=== PATIENT | female | born 2000 | race Caucasian/White ===

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

== ENCOUNTER 2018-01-16 10:05 | Emergency (ER) | payer BC ==
--- NOTE | 2018-01-16 10:43 | ED ---
Abdominal Pain/Female - HPI Summary HPI Summary: The pt is a 27 y/o female presenting to [facility] c/o LLQ pain for 1 week worsened 4 days ago. The aching pain rated 5/10 in severity is aggravated by walking and alleviated by lying down. She notes N/V/D but denies constipation.Maris thought she had the stomach bug but the pain is persistent. LNMP was 12/11/2017. The pt took a test today morning but it was difficult to interpret. - History of Current Complaint Chief Complaint: EDAbdPain Stated Complaint: LOWER LT ABD PAIN Time Seen by Provider: 01/16/18 10:30 Hx Obtained From: Patient Hx Last Menstrual Period: 12/11/2017 Onset/Duration: Gradual Onset, Lasting Weeks - 1 week, Worse Since - 4 days ago Timing: Constant Severity Initially: Moderate Severity Currently: Moderate Pain Intensity: 5 Pain Scale Used: 0-10 Numeric Location: Discrete At: LLQ Character: Other: - Aching Aggravating Factor(s): Other: - Ambulating Alleviating Factor(s): Position - Lying down Associated Signs and Symptoms: Positive: Nausea, Vomiting, Diarrhea. Negative: Constipation Allergies/Adverse Reactions: Allergies Allergy/AdvReac Type Severity Reaction Status Date / Time No Known Allergies Allergy Verified 01/16/18 10:29 PMH/Surg Hx/FS Hx/Imm Hx Previously Healthy: No Endocrine/Hematology History: Reports: Hx Thyroid Disease - hypothyroid Denies: Hx Anticoagulant Therapy, Hx Diabetes Cardiovascular History: Denies: Hx Congestive Heart Failure, Hx Deep Vein Thrombosis, Hx Hypertension , Hx Myocardial Infarction, Hx Pacemaker/ICD Respiratory History: Denies: Hx Asthma, Hx Chronic Obstructive Pulmonary Disease (COPD), Hx Lung Cancer, Hx Pneumonia, Hx Pulmonary Embolism GI History: Denies: Hx Gall Bladder Disease, Hx Gastrointestinal Bleed, Hx Ulcer, Hx Urosepsis History: Denies: Hx Dialysis, Hx Kidney Stones, Hx Renal Disease Neurological History: Denies: Hx Dementia, Hx Migraine, Hx Seizures, Hx Transient Ischemic Attacks (TIA) Psychiatric History: Reports: Hx Anxiety Denies: Hx Depression, Hx Schizophrenia, Hx Bipolar Disorder - Surgical History Surgery Procedure, Year, and Place: Tonsillectomy Infectious Disease History: No Infectious Disease History: Denies: Hx Clostridium Difficile, Hx Hepatitis, Hx Human Immunodeficiency Virus (HIV), Hx of Known/Suspected MRSA, Hx Shingles, Hx Tuberculosis, Hx Known/ Suspected VRE, Hx Known/Suspected VRSA, History Other Infectious Disease, Traveled Outside the [place] in Last 30 Days - Family History Known Family History: Positive: Diabetes, Other - irritable bowel (mother), gastroschisis (sister) Negative: Cardiac Disease, Hypertension - Social History Occupation: Employed Full-time Lives: Alone Alcohol Use: Rare Substance Use Type: Reports: None Smoking Status (MU): Never Smoked Tobacco Review of Systems Negative: Fever Gastrointestinal: Negative - Constipation Positive: Abdominal Pain - LLQ , Vomiting, Diarrhea, Nausea All Other Systems Reviewed And Are Negative: Yes Physical Exam - Summary Physical Exam Summary: Appearance: The patient is well-nourished in no acute distress and in no acute pain. Skin: The skin is warm and dry and skin color reflects adequate perfusion. HEENT: The head is normocephalic and atraumatic. The pupils are equal and reactive. The conjunctivae are clear and without drainage. Nares are patent and without drainage. Mouth reveals moist mucous membranes and the throat is without erythema and exudate. The external ears are intact. The ear canals are patent and without drainage. The tympanic membranes are intact. Neck: The neck is supple with full range of motion and non-tender. There are no carotid bruits. There is no neck vein distension. Respiratory: Chest is non-tender. Lungs are clear to auscultation and breath sounds are symmetrical and equal. Cardiovascular: Heart is regular rate and rhythm. There is no murmur or rub auscultated. There is no peripheral edema and pulses are symmetrical and equal. Abdomen: The abdomen is soft and tender to palpation in the LLQ and suprapubic regions. There are normal bowel sounds heard in all four quadrants and there is no organomegaly palpated. Musculoskeletal: There is no back tenderness noted. Extremities are non-tender with full range of motion. There is good capillary refill. There is no peripheral edema or calf tenderness elicited. Neurological: Patient is alert and oriented to person, place and time. The patient has symmetrical motor strength in all four extremities. Cranial nerves are grossly intact. Deep tendon reflexes are symmetrical and equal in all four extremities. Psychiatric: The patient has an appropriate affect and does not exhibit any anxiety or depression. Triage Information Reviewed: Yes Vital Signs On Initial Exam: Initial Vitals Temp Pulse Resp BP Pulse Ox 98.4 F 96 20 141/81 98 01/16/18 10:26 01/16/18 10:26 01/16/18 10:26 01/16/18 10:26 01/16/18 10:26 Vital Signs Reviewed: Yes Diagnostics - Vital Signs Vital Signs Temp Pulse Resp BP Pulse Ox 01/16/18 10:26 98.4 F 96 20 141/81 98 - Laboratory Result Diagrams: 01/16/18 11:02 01/16/18 11:02 Lab Statement: Any lab studies that have been ordered have been reviewed, and results considered in the medical decision making process. Re-Evaluation - Re-Evaluation First Eval Re-Evaluation Time: 12:42 Change: Improved - The pt feels better and is ready to go home. Abdominal Pain Fem Course/Dx - Course Course Of Treatment: Ms. Irizarry presented to the emergency department late for her period, having taken an equivocal urine test and complaining of about 4 days of left lower quadrant pain worse today. She denies discharge or change in bowels and bladder habits. Here vital signs are stable and she was nontoxic in appearance. Her test was barely positive here and her labs are otherwise normal. She needs NATIONAL FACILITIES MANAGER follow-up with a repeat hCG in 2 days. She has no bleeding at this time. She is too early for an ultrasound. She likely needs a pelvic exam but prefers to wait for the NATIONAL FACILITIES MANAGER appointment. - Diagnoses Provider Diagnoses: Discharge - Sign-Out/Discharge Documenting (check all that apply): Patient Departure - DC - Discharge Plan Condition: Stable Disposition: HOME Patient Education Materials: (ED) Forms: *Work Release Referrals: Cristina Suggs MD [Primary Care Provider] - Morgan Meza MD [Medical Doctor] - Additional Instructions: Follow up with [facility] in 1-2 days for a repeat test. Return to ED for any new or worsening symptoms - Billing Disposition and Condition Condition: STABLE Disposition: Home - Attestation Statements Document Initiated by Scribe: Yes Documenting Scribe: Trang Mercer Provider For Whom Scribe is Documenting (Include Credential): Dr. Denzel Boston MD Scribe Attestation: Trang Camarena , scribed for Dr. Denzel Boston MD on 01/16/18 at 2129. Scribe Documentation Reviewed: Yes Provider Attestation: The documentation as recorded by the scribe, Trang Mercer accurately reflects the service I personally performed and the decisions made by me, Dr. Denzel Boston MD
[2018-01-16 11:10] LABS: Urine Appearance Cloudy; Urine Blood Negative (Negative); Urine Color Yellow; Urine Ketones Negative (Negative); Urine Protein Negative (Negative); Urine Red Blood Cell Absent (Absent); Urine Specific Gravity 1.025 (1.010-1.030); Urine Urobilinogen Negative (Negative); Urine White Blood Cell Trace(0-5/hpf) (Absent)
[2018-01-16 11:15] LABS: ABS Basophils 0.1 10^3/ul (0-0.2); ABS Eosinophils 0.1 10^3/ul (0-0.6); ABS Lymphocytes 1.4 10^3/ul (1.0-4.8); ABS Monocytes 0.4 10^3/ul (0-0.8); ABS Nucleated RBC 0 10^3/ul; Eosinophil % 1.3 % (0-6); Hematocrit 31 % (35-47); Hemoglobin 9.4 g/dl (12.0-16.0); Lymphocyte % 15.7 % (25-47); Mean Corpuscular HGB Conc 31 g/dl (31-36); Mean Corpuscular Hemoglobin 16 pg (27-31); Mean Corpuscular Volume 53 fL (80-97); Mean Platelet Volume 8.5 um3 (7.4-10.4); Nucleated Red Blood Cells % 0.1; Platelet Count 362 10^3/ul (150-450); Red Blood Count 5.82 10^6/ul (4.00-5.40); Red Cell Distribution Width 22 % (10.5-15)
[2018-01-16 11:27] LABS: EGFR Non-African American 120.5 (>60)
[2018-01-16 13:00] VITALS: BP 132/77
== END 2018-01-16 12:58 | disposition home or self-care (01) ==
LOC: ED 10:05
DX: O26.891 Other specified pregnancy related conditions, first trimester (principal); R10.32 Left lower quadrant pain
CPT/HCPCS: 36415; 80053; 81003; 81015; 83605; 84702; 85025; 86140; 87086; 99282

== ENCOUNTER 2018-04-30 11:30 | Emergency (ER) | payer BC ==
--- NOTE | 2018-04-30 11:54 | ED ---
HPI Chest Pain - HPI Summary HPI Summary: This pt is a 18 y/o female, currently 18 weeks , presenting to [facility] c/o midsternal chest pain. Pt reports that she had just had a flu shot at her PCP's office and was driving back to work when suddenly she developed chest pain. Pt had flu shot on right arm and states she was nervous she would get a reaction to it. She has never had a flu shot in the past. She states associated symptoms of difficulty breathing and had left arm pain. Denies fever, chills, nausea, vomiting, weakness, numbness, tingling, cough. Pt reports she is being tested currently if she has either gestational diabetes or type 2 diabetes and is seeing a specialist for this in [place]. PMHx: anxiety, panic attack. Pt is only taking vitamins. Her OB is [facility]. Denies tobacco, drug, and alcohol use. - History of Current Complaint Chief Complaint: EDChestPainROMI Time Seen by Provider: 04/30/18 11:44 Hx Obtained From: Patient, Family/Tire Care Manager - Mother Hx Last Menstrual Period: 12/11/2017 Onset/Duration: Started Hours Ago, Still Present Timing: Lasting Hours Current Severity: Moderate Pain Intensity: 6 Pain Scale Used: 0-10 Numeric Chest Pain Location: Mid Sternal Chest Pain Radiates: No Aggravating Factor(s): Nothing Alleviating Factor(s): Nothing Associated Signs and Symptoms: Positive: Chest Pain, Anxiety, Shortness of Breath. Negative: Numbness, Tingling, Weakness, Fever, Chills, Nausea, Cough, Vomiting - Allergy/Home Medications Allergies/Adverse Reactions: Allergies Allergy/AdvReac Type Severity Reaction Status Date / Time No Known Allergies Allergy Verified 04/30/18 11:34 Home Medications: Home Medications Vitamin TAB* 1 tab PO DAILY 04/30/18 [History Confirmed 04/30/18] PMH/Surg Hx/FS Hx/Imm Hx Endocrine/Hematology History: Reports: Hx Thyroid Disease - hypothyroid Denies: Hx Anticoagulant Therapy, Hx Diabetes Cardiovascular History: Denies: Hx Congestive Heart Failure, Hx Deep Vein Thrombosis, Hx Hypertension , Hx Myocardial Infarction, Hx Pacemaker/ICD Respiratory History: Denies: Hx Asthma, Hx Chronic Obstructive Pulmonary Disease (COPD), Hx Lung Cancer, Hx Pneumonia, Hx Pulmonary Embolism GI History: Denies: Hx Gall Bladder Disease, Hx Gastrointestinal Bleed, Hx Ulcer, Hx Urosepsis History: Denies: Hx Dialysis, Hx Kidney Stones, Hx Renal Disease Neurological History: Denies: Hx Dementia, Hx Migraine, Hx Seizures, Hx Transient Ischemic Attacks (TIA) Psychiatric History: Reports: Hx Anxiety Denies: Hx Depression, Hx Schizophrenia, Hx Bipolar Disorder - Surgical History Surgery Procedure, Year, and Place: Tonsillectomy Infectious Disease History: No Infectious Disease History: Denies: Hx Clostridium Difficile, Hx Hepatitis, Hx Human Immunodeficiency Virus (HIV), Hx of Known/Suspected MRSA, Hx Shingles, Hx Tuberculosis, Hx Known/ Suspected VRE, Hx Known/Suspected VRSA, History Other Infectious Disease, Traveled Outside the [place] in Last 30 Days - Family History Known Family History: Positive: Diabetes, Other - irritable bowel (mother), gastroschisis (sister) Negative: Cardiac Disease, Hypertension, Blood Disorder - Social History Alcohol Use: Rare Substance Use Type: Reports: None Smoking Status (MU): Never Smoked Tobacco Review of Systems Negative: Fever, Chills Negative: Erythema Negative: Sore Throat Positive: Chest Pain Positive: Shortness Of Breath. Negative: Cough Negative: Vomiting, Nausea Negative: dysuria, hematuria Musculoskeletal: Other - POS: left arm pain Negative: Myalgia, Edema Negative: Rash Neurological: Other - NEG: dizziness All Other Systems Reviewed And Are Negative: Yes Physical Exam - Summary Physical Exam Summary: Constitutional: Well-developed, Well-nourished, Alert. (-) Distressed Skin: Warm, Dry HENT: Normocephalic; Atraumatic Eyes: Conjunctiva normal Neck: Musculoskeletal ROM normal neck. (-) JVD, (-) Stridor, (-) Tracheal deviation Cardio: Rhythm regular, rate normal, Heart sounds normal; Intact distal pulses; The pedal pulses are 2+ and symmetric. Radial pulses are 2+ and symmetric. (-) Murmur Pulmonary/Chest wall: Effort normal. (-) Respiratory distress, (-) Wheezes, (-) Rales Abd: Soft, (-) Tenderness, (-) Distension, (-) Guarding, (-) Rebound Musculoskeletal: (-) Edema Lymph: (-) Cervical adenopathy Neuro: Alert, Oriented x3 Psych: Mood and affect Normal Triage Information Reviewed: Yes Vital Signs On Initial Exam: Initial Vitals Temp Pulse Resp BP Pulse Ox 97.1 F 91 16 123/80 100 04/30/18 11:31 04/30/18 11:31 04/30/18 11:31 04/30/18 11:31 04/30/18 11:31 Vital Signs Reviewed: Yes Diagnostics - Vital Signs Vital Signs Temp Pulse Resp BP Pulse Ox 04/30/18 11:31 97.1 F 91 16 123/80 100 - Laboratory Lab Statement: Any lab studies that have been ordered have been reviewed, and results considered in the medical decision making process. - EKG 11:41 Cardiac Rate: Tachycardia - at 102 bpm EKG Rhythm: Sinus Tachycardia Summary of EKG Findings: No STEMI. 13:33 Cardiac Rate: NL - at 80 bpm EKG Rhythm: Sinus Rhythm Summary of EKG Findings: No STEMI. Re-Evaluation - Re-Evaluation First Eval Re-Evaluation Time: 13:19 Change: Improved Comment: Pt's mother reports pt had significant anxiety at ecmo specialist's office before her flu shot was given. Obstretrician was asking questions about the progression of her and pt became paranoid. Pt does have hx of anxiety and panic attacks. On re-eval pt's chest pain has resolved but still has mild discomfort on left arm. Chest Pain Course/Dx - Course Assessment/Plan: Pt is a 18 y/o female, currently 18 weeks , who presents with midsternal chest pain. Pt reports that she had just had a flu shot at her PCP's office and was driving back to work when suddenly she developed chest pain. Pt had flu shot on right arm and states she was nervous she would get a reaction to it. She has never had a flu shot in the past. She states associated symptoms of difficulty breathing and had left arm pain. Pt's mother reports pt had significant anxiety at ecmo specialist's office before her flu shot was given. Obstretrician was asking questions about the progression of her and pt became paranoid. Pt does have hx of anxiety and panic attacks. On re-eval pt's chest pain has resolved but still has mild discomfort on left arm. I do not suspect acute coronary syndrome as pt does not have risk factors for this. Will do ambulatory oximetry and repeat EKG. Her ambulatory oximetry was normal. I do not suspect acute coronary syndrome or PE. Pt will be discharged home with follow up from her OB in 2-3 days. She is instructed to return to the ED for any worsening or new symptoms. - Diagnoses Provider Diagnoses: Chest pain, unspecified, Anxiety Discharge - Sign-Out/Discharge Documenting (check all that apply): Patient Departure - Discharge home Patient Received Moderate/Deep Sedation with Procedure: No - Discharge Plan Condition: Stable Disposition: HOME Patient Education Materials: Chest Pain (ED), Anxiety (ED) Referrals: [facility] [Provider Group] Cristina Suggs MD [Medical Doctor] - Additional Instructions: Follow up with your OB in 2-3 days. RETURN TO THE EMERGENCY DEPARTMENT FOR CHANGING OR WORSENING SYMPTOMS. - Attestation Statements Document Initiated by Scribe: Yes Documenting Scribe: Digna Sheffield Provider For Whom Scribe is Documenting (Include Credential): Stan Tillman MD Scribe Attestation: Digna Camarena, scribed for Stan Tillman MD on 04/30/18 at 1404. Status of Scribe Document: Ready
[2018-04-30 13:39] VITALS: BP 119/65
== END 2018-04-30 13:59 | disposition home or self-care (01) ==
LOC: ED 11:30
DX: O26.892 Other specified pregnancy related conditions, second trimester (principal); R07.2 Precordial pain; F41.9 Anxiety disorder, unspecified; R06.02 Shortness of breath; M79.602 Pain in left arm; R00.0 Tachycardia, unspecified; Z3A.18 18 weeks gestation of pregnancy
CPT/HCPCS: 93005; 99281; 99282

== ENCOUNTER 2018-05-17 11:08 | Emergency (ER) | payer BC ==
--- NOTE | 2018-05-17 11:55 | UC ---
FLU HPI - HPI Summary HPI Summary: Approx 20wks F w/ hx of chills., FEVER, cough, one time episode of almost vomiting/nausea. - History of Current Complaint Stated Complaint: FLU LIKE SYMPTOMS Time Seen by Provider: 05/17/18 11:55 Hx Obtained From: Patient Hx From Patient Unobtainable Due To: Altered Mental Status Hx Last Menstrual Period: 12/11/2017 - Allergy/Home Medications Allergies/Adverse Reactions: Allergies Allergy/AdvReac Type Severity Reaction Status Date / Time No Known Allergies Allergy Verified 04/30/18 11:34 PMH/Surg Hx/FS Hx/Imm Hx - Additional Past Medical History Additional PMH: Previously Healthy: Yes Other History Of: Negative For: HIV, Hepatitis B, Hepatitis C, Anticoagulant Therapy - Surgical History Surgical History: Yes Surgery Procedure, Year, and Place: Tonsillectomy - Family History Known Family History: Positive: Diabetes, Other - irritable bowel (mother), gastroschisis (sister) Negative: Cardiac Disease, Hypertension, Blood Disorder - Social History Alcohol Use: Rare Substance Use Type: None Smoking Status (MU): Never Smoked Tobacco - Immunization History Vaccination Up to Date: Yes Review of Systems All Other Systems Reviewed And Are Negative: Yes Constitutional: Negative: Fever, Chills, Fatigue ENT: Positive: Sore Throat, Sinus Congestion. Negative: Ear Ache, Nasal Discharge Respiratory: Positive: Cough. Negative: Shortness Of Breath Cardiovascular: Positive: Negative Gastrointestinal: Positive: Vomiting, Nausea. Negative: Diarrhea Neurological: Negative: Headache Physical Exam Triage Information Reviewed: Yes Appearance: Well-Appearing Vital Signs Reviewed: Yes ENT: Positive: Pharynx normal, TMs normal Neck: Positive: Supple, Nontender, No Lymphadenopathy. Negative: Nuchal Rigidity Respiratory Exam: Normal Cardiovascular Exam: Normal Neurological: Positive: Alert Skin: Negative: Rashes Flu Course/Dx - Course Course Of Treatment: F w/ flu like illness; acute. Vitals good. rapid flu neg. supportive tx recommended. - Differential Dx/Diagnosis Differential Diagnosis/HQI/PQRI: Influenza, RSV, Upper Respiratory Infection Provider Diagnosis: Viral syndrome Discharge - Sign-Out/Discharge Documenting (check all that apply): Patient Departure All imaging exams completed and their final reports reviewed: No Studies - Discharge Plan Condition: Good Disposition: HOME Patient Education Materials: Viral Syndrome (ED) Forms: *Work Release Referrals: No Primary Care Phys,NOPCP [Primary Care Provider] - Additional Instructions: if not improving please follow up with your provider - Billing Disposition and Condition Condition: GOOD Disposition: Home - Attestation Statements Provider Attestation: I was available for consult. This patient was seen by the BETTY. The patient was not presented to, seen by, or examined by me. -Braeden
[2018-05-17 12:49] VITALS: BP 132/67
[2018-05-17 12:50] LABS: Influenza A Molecular NEGATIVE (Negative); Influenza B Molecular NEGATIVE (Negative)
== END 2018-05-17 13:25 | disposition home or self-care (01) ==
LOC: UCEAST 11:08
DX: O98.512 Other viral diseases complicating pregnancy, second trimester (principal); B34.9 Viral infection, unspecified; R41.82 Altered mental status, unspecified; R05 Cough; Z3A.20 20 weeks gestation of pregnancy
CPT/HCPCS: 99211; G0463

== ENCOUNTER 2018-05-27 13:24 | Emergency (ER) | payer BC ==
[2018-05-27 15:11] LABS: ABS Basophils 0 10^3/ul (0-0.2); ABS Eosinophils 0.1 10^3/ul (0-0.6); ABS Lymphocytes 1.2 10^3/ul (1.0-4.8); ABS Monocytes 0.5 10^3/ul (0-0.8); ABS Neutrophils 8.8 10^3/ul (1.5-7.7); ABS Nucleated RBC 0 10^3/ul; Eosinophil % 0.6 %; Hematocrit 31 % (35-47); Hemoglobin 9.6 g/dl (12.0-16.0); Lymphocyte % 11.3 %; Mean Corpuscular HGB Conc 31 g/dl (31-36); Mean Corpuscular Hemoglobin 17 pg (27-31); Mean Corpuscular Volume 54 fL (80-97); Mean Platelet Volume 8.6 fL (7.4-10.4); Nucleated Red Blood Cells % 0; Platelet Count 362 10^3/ul (150-450); Red Cell Distribution Width 21 % (10.5-15); White Blood Count 10.6 10^3/ul (3.5-10.8)
[2018-05-27 15:17] LABS: Albumin 3.4 g/dL (3.2-5.2); Albumin/Globulin Ratio 1.1 (1-3); BUN/Creatinine Ratio 12.5 (8-20); Calcium 8.6 mg/dL (8.6-10.3); Potassium 3.6 mmol/L (3.5-5.0); Total Bilirubin 0.3 mg/dL (0.2-1.0); Total Protein 6.4 g/dL (6.4-8.9)
--- NOTE | 2018-05-27 15:33 | ED ---
- HPI Summary HPI Summary: Patient is a 18-year-old female who presents emergency department for vaginal bleeding and pelvic cramping at 22 weeks gestation. This is patient's first . It has been complicated gestational diabetes which she is managing with diet at this point. Patient follows with OB locally. Patient states just prior to arrival her and significant other having intercourse when she noticed a large amount of bright red blood from vagina with abdominal cramping. She states that since bleeding has improved but she still noticing pain to her vaginal region. She otherwise denies past medical history. Recent illness, vomiting, urinary symptoms or other vaginal discharge. Symptoms are moderate in severity. No current modifying factors. - History of Current Complaint Chief Complaint: EDOBProblems Stated Complaint: "22 WEEKS , I STARTED BLEEDING" PER PT Time Seen by Provider: 05/27/18 14:50 Hx Obtained From: Patient Pain Intensity: 2 - Assessment Hx Now: Yes - 21 weeks per pt Hx Hysterectomy: No - Allergies/Home Medications Allergies/Adverse Reactions: Allergies Allergy/AdvReac Type Severity Reaction Status Date / Time No Known Allergies Allergy Verified 05/27/18 13:32 PMH/Surg Hx/FS Hx/Imm Hx Previously Healthy: Yes Endocrine/Hematology History: Reports: Hx Thyroid Disease - hypothyroid Denies: Hx Anticoagulant Therapy, Hx Diabetes Cardiovascular History: Denies: Hx Congestive Heart Failure, Hx Deep Vein Thrombosis, Hx Hypertension , Hx Myocardial Infarction, Hx Pacemaker/ICD Respiratory History: Denies: Hx Asthma, Hx Chronic Obstructive Pulmonary Disease (COPD), Hx Lung Cancer, Hx Pneumonia, Hx Pulmonary Embolism GI History: Denies: Hx Gall Bladder Disease, Hx Gastrointestinal Bleed, Hx Ulcer, Hx Urosepsis History: Denies: Hx Dialysis, Hx Kidney Stones, Hx Renal Disease Neurological History: Denies: Hx Dementia, Hx Migraine, Hx Seizures, Hx Transient Ischemic Attacks (TIA) Psychiatric History: Reports: Hx Anxiety Denies: Hx Depression, Hx Schizophrenia, Hx Bipolar Disorder - Cancer History Cancer Type, Location and Year: denies - Surgical History Surgery Procedure, Year, and Place: Tonsillectomy Infectious Disease History: No Infectious Disease History: Denies: Hx Clostridium Difficile, Hx Hepatitis, Hx Human Immunodeficiency Virus (HIV), Hx of Known/Suspected MRSA, Hx Shingles, Hx Tuberculosis, Hx Known/ Suspected VRE, Hx Known/Suspected VRSA, History Other Infectious Disease, Traveled Outside the in Last 30 Days - Family History Known Family History: Positive: Diabetes, Other - irritable bowel (mother), gastroschisis (sister) Negative: Cardiac Disease, Hypertension, Blood Disorder - Social History Occupation: Employed Full-time Lives: With Family Alcohol Use: Rare Substance Use Type: Reports: None Smoking Status (MU): Never Smoked Tobacco Review of Systems Constitutional: Negative Negative: Fever, Chills ENT: Negative Cardiovascular: Negative Respiratory: Negative Positive: Abdominal Pain. Negative: Vomiting, Diarrhea, Nausea Positive: other - vaginal bleeding . Negative: dysuria Neurological: Negative All Other Systems Reviewed And Are Negative: Yes Physical Exam - Physical Exam Triage Information Reviewed: Yes Vital Signs Reviewed: Yes Appearance: Positive: Well-Appearing - Pt. sitting up in bed in NAD. Skin: Positive: Warm, Dry Head/Face: Positive: Normal Head/Face Inspection Eyes: Positive: Normal, EOMI Neck: Positive: Supple Respiratory/Lung Sounds: Positive: Clear to Auscultation, Breath Sounds Present Cardiovascular: Positive: Normal, RRR Abdomen Description: Positive: Nontender, Soft Pelvic Exam: Other - Exam performed with female Imelda patrick. External genitalia unremarkable. Speculum exam reveals a closed cervix with a small amount of clotted blood in vaginal canal. No active bleeding. Neurological: Positive: Normal, CN Intact II-III Psychiatric: Positive: Affect/Mood Appropriate Diagnostics - Vital Signs Vital Signs Temp Pulse Resp BP Pulse Ox 05/27/18 13:28 98.3 F 110 18 136/79 98 - Laboratory Lab Results: Lab Results 05/27/18 05/27/18 05/27/18 Range/Units 14:40 14:40 14:40 WBC 10.6 (3.5-10.8) 10^3/ul RBC 5.70 H (4.00-5.40) 10^6/ul Hgb 9.6 L (12.0-16.0) g/dl Hct 31 L (35-47) % MCV 54 L (80-97) fL MCH 17 L (27-31) pg MCHC 31 (31-36) g/dl RDW 21 H (10.5-15) % Plt Count 362 (150-450) 10^3/ul MPV 8.6 (7.4-10.4) fL Neut % (Auto) 83.2 % Lymph % (Auto) 11.3 % [place] % (Auto) 4.7 % Eos % (Auto) 0.6 % Baso % (Auto) 0.2 % Absolute Neuts (auto) 8.8 H (1.5-7.7) 10^3/ul Absolute Lymphs (auto) 1.2 (1.0-4.8) 10^3/ul Absolute Monos (auto) 0.5 (0-0.8) 10^3/ul Absolute Eos (auto) 0.1 (0-0.6) 10^3/ul Absolute Basos (auto) 0 (0-0.2) 10^3/ul Absolute Nucleated RBC 0 10^3/ul Nucleated RBC % 0 Sodium 137 (135-145) mmol/L Potassium 3.6 (3.5-5.0) mmol/L Chloride 107 (101-111) mmol/L Carbon Dioxide 24 (22-32) mmol/L Anion Gap 6 (2-11) mmol/L BUN 7 (6-24) mg/dL Creatinine 0.56 (0.51-0.95) mg/dL Est GFR ( Amer) 167.0 (>60) Est GFR (Non-Af Amer) 138.0 (>60) BUN/Creatinine Ratio 12.5 (8-20) Glucose 96 (70-100) mg/dL Calcium 8.6 (8.6-10.3) mg/dL Total Bilirubin 0.30 (0.2-1.0) mg/dL AST 18 (13-39) U/L ALT 27 (7-52) U/L Alkaline Phosphatase 55 (34-104) U/L Total Protein 6.4 (6.4-8.9) g/dL Albumin 3.4 (3.2-5.2) g/dL Globulin 3.0 (2-4) g/dL Albumin/Globulin Ratio 1.1 (1-3) Beta HCG, Quant Pending Blood Type O Positive Antibody Screen Pending Result Diagrams: 05/27/18 14:40 05/27/18 14:40 Lab Statement: Any lab studies that have been ordered have been reviewed, and results considered in the medical decision making process. Course/Dx - Course Course Of Treatment: Pt. presenting for vaginal bleeding in second trimester after intercourse. Very mild abd. discomfort. Labs show chronic anemia. Blood type is O+. U/A negative for infections or protein. U/S per radiology: IMPRESSION: #. Limited obstetrical ultrasound remarkable for a single live intrauterine gestation in. cephalic presentation with estimated gestational age based on this exam of 23 weeks 2. days. Normal cardiac activity. Normal amniotic fluid volume. #. Negative for placenta previa. #. Long and closed cervix. Advised pt. to schedule a close f.u apt. with OB. Pelvic rest until cleared by OB. To return to ER if sxs change or worsen. Pt. understands and agrees with plan. - Differential Diagnosis/HQI/PQRI: Spontaneous , Threatened , Placenta Abruption, Placenta Previa, Vaginal Bleeding - Diagnoses Provider Diagnoses: Threatened miscarriage, Second trimester bleeding Discharge - Sign-Out/Discharge Documenting (check all that apply): Patient Departure Patient Received Moderate/Deep Sedation with Procedure: No - Discharge Plan Condition: Good Disposition: HOME Patient Education Materials: Threatened Miscarriage (ED) Forms: *Work Release Referrals: Morgan Meza MD [Medical Doctor] - Additional Instructions: Call your OB tomorrow for a close follow up appointment Increase fluids and rest Avoid heavy lifting, sex, or anything into vagina until seen by OB Return to ER if symptoms change or worsen - Billing Disposition and Condition Condition: GOOD Disposition: Home
[2018-05-27 16:58] LABS: Urine Appearance Clear; Urine Bacteria Absent (Absent); Urine Bilirubin Negative (Negative); Urine Blood 3+ (Negative); Urine Color Straw; Urine Glucose Negative (Negative); Urine Ketones Negative (Negative); Urine Nitrite Negative (Negative); Urine Protein Negative (Negative); Urine Red Blood Cell 2+(6-10/hpf) (Absent); Urine Specific Gravity 1.005 (1.010-1.030); Urine Squamous Epithelial Cell Present (Absent); Urine Urobilinogen Negative (Negative); Urine White Blood Cell Trace(0-5/hpf) (Absent)
[2018-05-27 17:26] VITALS: BP 130/76
== END 2018-05-27 17:25 | disposition home or self-care (01) ==
LOC: ED 13:24
DX: O20.0 Threatened abortion (principal); O24.410 Gestational diabetes mellitus in pregnancy, diet controlled; Z3A.22 22 weeks gestation of pregnancy
CPT/HCPCS: 36415; 76815; 80053; 81003; 81015; 84702; 85025; 86850; 86900; 86901; 87086; 99282

== ENCOUNTER 2018-06-25 08:36 | Emergency (ER) | payer BC ==
[2018-06-25] MEDS ORDERED: NS 0.9% 1000 ML** 1,000 ML IV ONE (09:02)
--- NOTE | 2018-06-25 09:03 | ED ---
Syncope/Near Syncope - HPI Summary HPI Summary: Pt. is a 18 y.o female who presents to the ER after a near syncopal episode. Pt. is currently 26 weeks . Pt. states she was sitting at work just prior to arrival when she started feeling dizzy, lightheaded, and her heart racing. Episode quickly resolved. Pt. denies associated SOB or CP. Pt. states since being in the ER her symptoms have almost completely resolved and she is feeling better. Pt. also notes that she has felt decreased activity since Monday. Pt. denies abd. pain, vomiting, urinary sxs, vaginal bleeding or discharge. Past hx of thalassemia. Pt. has an apt. with her OB today at 1400. Sxs are moderate in severity. NO current modifying factors. - History Of Current Complaint Chief Complaint: EDOBProblems Time Seen by Provider: 06/25/18 08:57 Hx Obtained From: Patient - Allergies/Home Medications Allergies/Adverse Reactions: Allergies Allergy/AdvReac Type Severity Reaction Status Date / Time No Known Allergies Allergy Verified 06/25/18 08:45 PMH/Surg Hx/FS Hx/Imm Hx Previously Healthy: Yes Endocrine/Hematology History: Reports: Hx Thyroid Disease - hypothyroid Denies: Hx Anticoagulant Therapy, Hx Diabetes Cardiovascular History: Denies: Hx Congestive Heart Failure, Hx Deep Vein Thrombosis, Hx Hypertension , Hx Myocardial Infarction, Hx Pacemaker/ICD Respiratory History: Denies: Hx Asthma, Hx Chronic Obstructive Pulmonary Disease (COPD), Hx Lung Cancer, Hx Pneumonia, Hx Pulmonary Embolism GI History: Denies: Hx Gall Bladder Disease, Hx Gastrointestinal Bleed, Hx Ulcer, Hx Urosepsis History: Denies: Hx Dialysis, Hx Kidney Stones, Hx Renal Disease Neurological History: Denies: Hx Dementia, Hx Migraine, Hx Seizures, Hx Transient Ischemic Attacks (TIA) Psychiatric History: Reports: Hx Anxiety Denies: Hx Depression, Hx Schizophrenia, Hx Bipolar Disorder - Cancer History Cancer Type, Location and Year: denies - Surgical History Surgery Procedure, Year, and Place: Tonsillectomy Infectious Disease History: No Infectious Disease History: Denies: Hx Clostridium Difficile, Hx Hepatitis, Hx Human Immunodeficiency Virus (HIV), Hx of Known/Suspected MRSA, Hx Shingles, Hx Tuberculosis, Hx Known/ Suspected VRE, Hx Known/Suspected VRSA, History Other Infectious Disease, Traveled Outside the [place] in Last 30 Days - Family History Known Family History: Positive: Diabetes, Other - irritable bowel (mother), gastroschisis (sister) Negative: Cardiac Disease, Hypertension, Blood Disorder - Social History Occupation: Employed Full-time Lives: With Family Alcohol Use: Rare Substance Use Type: Reports: None Smoking Status (MU): Never Smoked Tobacco Review of Systems Constitutional: Negative Negative: Fever, Chills Cardiovascular: Negative Positive: Palpitations. Negative: Chest Pain Respiratory: Negative Negative: Shortness Of Breath, Cough Gastrointestinal: Negative Negative: Abdominal Pain, Vomiting, Diarrhea, Nausea Genitourinary: Negative Negative: dysuria Musculoskeletal: Negative Skin: Negative Neurological: Negative All Other Systems Reviewed And Are Negative: Yes Physical Exam Triage Information Reviewed: Yes Vital Signs On Initial Exam: Initial Vitals Temp Pulse Resp BP Pulse Ox 97.0 F 98 14 125/82 98 06/25/18 08:39 06/25/18 08:39 06/25/18 08:39 06/25/18 08:39 06/25/18 08:39 Vital Signs Reviewed: Yes Appearance: Positive: Well-Appearing - Pt. sitting up in bed in NAD. Mother present. Skin: Positive: Warm, Dry Head/Face: Positive: Normal Head/Face Inspection Eyes: Positive: Normal, EOMI, MARSHA Neck: Positive: Supple Respiratory/Lung Sounds: Positive: Clear to Auscultation, Breath Sounds Present Cardiovascular: Positive: Normal, RRR Musculoskeletal: Positive: Normal, Strength/ROM Intact Neurological: Positive: Normal, CN Intact II-III Psychiatric: Positive: Affect/Mood Appropriate Diagnostics - Vital Signs Vital Signs Temp Pulse Resp BP Pulse Ox 06/25/18 08:39 97.0 F 98 14 125/82 98 - Laboratory Result Diagrams: 06/25/18 09:19 06/25/18 09:19 Lab Statement: Any lab studies that have been ordered have been reviewed, and results considered in the medical decision making process. Course/Dx Course Of Treatment: Pt. presenting with a near syncopal episode in . She is feeling back to baseline in ER. Afebrile with stable VS. ECG done at 0908 shows a sinus rhythm of 97bpm, normal axis, no st elevation or depression. Pt. given a liter of fluids. Orthostatic VS normal. Labs shows WBC of 10.9, H and H 8.9 and 29. Mag 1.6. Pt. has a hx of anemia. Pt. denies having sxs of anemia other than brief episode today. Pt. was given a dose of mag. Pt. states her apt. with OB today is to discuss anemia and discuss iron supplementation. Fetus was montiored by OB nurse and monitoring was normal. Results discussed with pt. She is comfortable with DC home to . with OB today at 1400 to discuss anemia. To return to eR if sxs change or worsen. Pt. understands and agrees with plan. - Diagnoses Differential Diagnosis/HQI/PQRI: Positive: Hypoglycemia, Hypovolemia, Metabolic Reaction Provider Diagnoses: Near syncope, Anemia Discharge - Sign-Out/Discharge Documenting (check all that apply): Patient Departure Patient Received Moderate/Deep Sedation with Procedure: No - Discharge Plan Condition: Improved Disposition: HOME Patient Education Materials: Near Syncope (ED), Anemia (ED) Referrals: Amy Graham MD [Medical Doctor] - Additional Instructions: Follow up with your OB today at 2pm Increase fluids and rest Return to ER if symptoms change or worsen - Billing Disposition and Condition Condition: IMPROVED Disposition: Home
[2018-06-25 09:33] LABS: Hematocrit 29 % (33-41); Hemoglobin 8.9 g/dL (12.0-16.0); Mean Corpuscular HGB Conc 31 g/dL (31-36); Mean Corpuscular Hemoglobin 16 pg (27-31); Mean Corpuscular Volume 53 fL (80-97); Mean Platelet Volume 8.5 fL (7.4-10.4); Platelet Count 385 10^3/uL (150-450); Red Blood Count 5.41 10^6 /uL (3.70-4.87); Red Cell Distribution Width 20 % (10.5-15); White Blood Count 10.9 10^3/uL (3.5-10.8)
[2018-06-25 09:35] LABS: Urine Appearance Cloudy; Urine Bilirubin Negative (Negative); Urine Blood Negative (Negative); Urine Color Yellow; Urine Glucose Negative (Negative); Urine Ketones Negative (Negative); Urine Nitrite Negative (Negative); Urine Protein Negative (Negative); Urine Urobilinogen Negative (Negative)
[2018-06-25 09:45] LABS: ALT 25 U/L (7-52); AST 16 U/L (13-39); Albumin 3.2 g/dL (3.2-5.2); Albumin/Globulin Ratio 1.1 (1-3); Alkaline Phosphatase 60 U/L (34-104); Anion Gap 9 mmol/L (2-11); BUN/Creatinine Ratio 18.2 (8-20); Blood Urea Nitrogen 10 mg/dL (6-24); CO2 Carbon Dioxide 23 mmol/L (22-32); Calcium 8.9 mg/dL (8.6-10.3); Chloride 106 mmol/L (101-111); EGFR African American 170.5 (>60); EGFR Non-African American 140.9 (>60); Globulin 2.9 g/dL (2-4); Glucose 93 mg/dL (70-100); Magnesium 1.6 mg/dL (1.9-2.7); Potassium 3.8 mmol/L (3.5-5.0); Sodium 138 mmol/L (135-145); Total Protein 6.1 g/dL (6.4-8.9)
[2018-06-25 10:19] LABS: TSH (Thyroid Stimulating Horm) 5.25 mcIU/mL (0.34-5.60)
[2018-06-25 10:36] LABS: ABS Basophils 0.1 10^3/ul (0-0.2); ABS Eosinophils 0.1 10^3/ul (0-0.6); ABS Lymphocytes 1.2 10^3/ul (1.0-4.8); ABS Monocytes 0.6 10^3/ul (0-0.8); ABS Nucleated RBC 0 10^3/ul; Eosinophil % 0.9 %; Lymphocyte % 10.7 %; Microcytosis 2+; Nucleated Red Blood Cells % 0; Polychromasia 1+
[2018-06-25] MEDS ORDERED: Magnesium Oxide TAB* 400 MG PO ONE (10:36)
[2018-06-25 11:36] VITALS: BP 112/78
[2018-06-25 15:37] LABS: Iron 28 ug/dL (50-212)
[2018-06-25 15:56] LABS: Free T4 0.76 ng/dL (0.61-1.12)
[2018-06-26 13:37] LABS: % Iron Saturation 4 % (15-55); Total Iron Binding Capacity 652 mcg/dL (250-450); Transferrin 466 mg/dL (203-362)
== END 2018-06-25 11:40 | disposition home or self-care (01) ==
LOC: ED 08:36
DX: O26.892 Other specified pregnancy related conditions, second trimester (principal); R55 Syncope and collapse; O99.282 Endocrine, nutritional and metabolic diseases complicating pregnancy, second trimester; O99.012 Anemia complicating pregnancy, second trimester; Z3A.26 26 weeks gestation of pregnancy
CPT/HCPCS: 36415; 80053; 81003; 82728; 83540; 83550; 83735; 84439; 84443; 85025; 93005; 96360; 96361; 99282

== ENCOUNTER 2018-07-16 07:47 | Emergency (ER) | payer BC ==
--- NOTE | 2018-07-16 08:47 | ED ---
- HPI Summary HPI Summary: Patient is a 18-year-old female with a history of gestational diabetes who is 29 weeks , presenting to the ED with concern for decreased movement. She states she noticed last night at around 8 PM, she had decreased movement, but still felt some amount of movement. Upon wakening this morning, since the production dispatcher hours, she has not had any movement. She states she experienced this one time before and wanted to again make sure everything was okay. She states she does have some anxiety over the and . Gestational diabetes is well-controlled and she checks her sugars regularly. She states she has not eaten yet today. She states so far this has been a normal with no other concerns. She states she is feeling otherwise well. Denies any abdominal pain, vaginal bleeding, vaginal discharge or urinary symptoms. - History of Current Complaint Chief Complaint: EDOBProblems Stated Complaint: 29 WKS , NOT FEELING ANY MOVEMENT PER PT Time Seen by Provider: 07/16/18 07:58 Hx Obtained From: Patient, Family/Cvor Nurse Chief Complaint: Concern for Demise Onset/Duration: Started Hours Ago Timing: Constant Severity: Mild Current Severity: Mild Pain Intensity: 0 Location of Pain: None Character: None Associated Signs and Symptoms: Positive: Negative - Assessment Hx Now: Yes - 21 weeks per pt Hx Hysterectomy: No - Allergies/Home Medications Allergies/Adverse Reactions: Allergies Allergy/AdvReac Type Severity Reaction Status Date / Time No Known Allergies Allergy Verified 06/25/18 08:45 PMH/Surg Hx/FS Hx/Imm Hx Previously Healthy: Yes Endocrine/Hematology History: Reports: Hx Thyroid Disease - hypothyroid Denies: Hx Anticoagulant Therapy, Hx Diabetes Cardiovascular History: Denies: Hx Congestive Heart Failure, Hx Deep Vein Thrombosis, Hx Hypertension , Hx Myocardial Infarction, Hx Pacemaker/ICD Respiratory History: Denies: Hx Asthma, Hx Chronic Obstructive Pulmonary Disease (COPD), Hx Lung Cancer, Hx Pneumonia, Hx Pulmonary Embolism GI History: Denies: Hx Gall Bladder Disease, Hx Gastrointestinal Bleed, Hx Ulcer, Hx Urosepsis History: Denies: Hx Dialysis, Hx Kidney Stones, Hx Renal Disease Neurological History: Denies: Hx Dementia, Hx Migraine, Hx Seizures, Hx Transient Ischemic Attacks (TIA) Psychiatric History: Reports: Hx Anxiety Denies: Hx Depression, Hx Schizophrenia, Hx Bipolar Disorder - Cancer History Cancer Type, Location and Year: denies - Surgical History Surgery Procedure, Year, and Place: Tonsillectomy - Immunization History Date of Influenza Vaccine: 03/2018 Hx Pertussis Vaccination: No Immunizations Up to Date: Yes Infectious Disease History: No Infectious Disease History: Denies: Hx Clostridium Difficile, Hx Hepatitis, Hx Human Immunodeficiency Virus (HIV), Hx of Known/Suspected MRSA, Hx Shingles, Hx Tuberculosis, Hx Known/ Suspected VRE, Hx Known/Suspected VRSA, History Other Infectious Disease, Traveled Outside the [place] in Last 30 Days - Family History Known Family History: Positive: Diabetes, Other - irritable bowel (mother), gastroschisis (sister) Negative: Cardiac Disease, Hypertension, Blood Disorder - Social History Occupation: Unemployed Lives: With Family Alcohol Use: Rare Hx Substance Use: No Substance Use Type: Reports: None Smoking Status (MU): Never Smoked Tobacco Review of Systems Constitutional: Negative Negative: Fever, Chills, Fatigue, Skin Diaphoresis Negative: Palpitations, Chest Pain Negative: Shortness Of Breath, Cough Genitourinary: Negative Positive: no symptoms reported, see HPI Negative: Arthralgia, Myalgia Negative: Rash, Bruising Neurological: Negative All Other Systems Reviewed And Are Negative: Yes Physical Exam - Physical Exam Triage Information Reviewed: Yes Vital Signs Reviewed: Yes Appearance: Positive: Well-Appearing, Well-Nourished Skin: Positive: Warm, Skin Color Reflects Adequate Perfusion Head/Face: Positive: Normal Head/Face Inspection Eyes: Positive: EOMI, MARSHA, Conjunctiva Clear Neck: Positive: Supple, No Lymphadenopathy Respiratory/Lung Sounds: Positive: Clear to Auscultation, Breath Sounds Present Cardiovascular: Positive: RRR, Pulses are Symmetrical in both Upper and Lower Extremities Musculoskeletal: Positive: Strength/ROM Intact Neurological: Positive: Alert, Oriented to Person Place, Time Psychiatric: Positive: Affect/Mood Appropriate Diagnostics - Vital Signs Vital Signs Temp Pulse Resp BP Pulse Ox 07/16/18 07:48 98.3 F 116 20 142/100 99 - Laboratory Lab Statement: Any lab studies that have been ordered have been reviewed, and results considered in the medical decision making process. Course/Dx - Course Course Of Treatment: On arrival to the ED, heart tones are obtained which show 140-155. Discussed this with patient. She states she feels less concern as there are positive heart tones. At this time, she will follow-up with [facility] and she understands she can return to the ED if she continues to not feel any movement. - Differential Diagnosis/HQI/PQRI: Other: - Concern for embryonic demise, anxiety about - Diagnoses Provider Diagnoses: Decreased movement Discharge - Sign-Out/Discharge Documenting (check all that apply): Patient Departure Patient Received Moderate/Deep Sedation with Procedure: No - Discharge Plan Condition: Stable Disposition: HOME Referrals: No Primary Care Phys,NOPCP [Primary Care Provider] - Additional Instructions: heart tones are good Continue to check your sugars Follow up with OBGYN - sooner if you continue to not have movement - Billing Disposition and Condition Condition: STABLE Disposition: Home
[2018-07-16 08:50] VITALS: BP 118/67
== END 2018-07-16 08:49 | disposition home or self-care (01) ==
LOC: ED 07:47
DX: O36.8130 Decreased fetal movements, third trimester, not applicable or unspecified (principal); Z3A.29 29 weeks gestation of pregnancy; O24.419 Gestational diabetes mellitus in pregnancy, unspecified control
CPT/HCPCS: 99282

== ENCOUNTER 2018-09-02 09:34 | Emergency (ER) | payer BC ==
--- NOTE | 2018-09-02 10:15 | UC ---
Lower Extremity/Ankle HPI - HPI Summary HPI Summary: 18-year-old female comes in with a chief complaint of bilateral itchy feet and rash. Patient is 36 weeks . She's had pedal edema for about a month now. She noticed overnight that the top of her feet have a fine red rash on them and they itch. Earlier today she was not feeling the baby move but she drank some orange juice and now she is feeling the baby move. No headache no vision changes no abdominal pain. The rash is itchy. She hasn't now that she' s had any new contact with anything that may give her a rash. Has not been outside much. - History of Current Complaint Chief Complaint: UCSkin Stated Complaint: ITCHY FEET Time Seen by Provider: 09/02/18 09:55 Hx Last Menstrual Period: nov Pain Intensity: 0 - Allergies/Home Medications Allergies/Adverse Reactions: Allergies Allergy/AdvReac Type Severity Reaction Status Date / Time No Known Allergies Allergy Verified 09/02/18 09:59 PMH/Surg Hx/FS Hx/Imm Hx Previously Healthy: Yes Other History Of: Negative For: HIV, Hepatitis B, Hepatitis C, Anticoagulant Therapy - Surgical History Surgical History: Yes Surgery Procedure, Year, and Place: Tonsillectomy - Family History Known Family History: Positive: Diabetes, Other - irritable bowel (mother), gastroschisis (sister) Negative: Cardiac Disease, Hypertension, Blood Disorder - Social History Alcohol Use: None Substance Use Type: None Smoking Status (MU): Never Smoked Tobacco - Immunization History Most Recent Tetanus Shot: utd Vaccination Up to Date: Yes Review of Systems All Other Systems Reviewed And Are Negative: Yes Constitutional: Positive: Negative Skin: Positive: Other - SEE HPI Eyes: Positive: Negative ENT: Positive: Negative Respiratory: Positive: Negative Cardiovascular: Positive: Negative Gastrointestinal: Positive: Negative Genitourinary: Positive: Negative Motor: Positive: Negative Neurovascular: Positive: Negative Musculoskeletal: Positive: Edema Neurological: Positive: Negative Psychological: Positive: Negative Is Patient Immunocompromised?: No Physical Exam Triage Information Reviewed: Yes Appearance: Well-Appearing, No Pain Distress, Well-Nourished Vital Signs: Initial Vital Signs Temp 97.1 F 09/02/18 09:54 Pulse 104 09/02/18 09:54 Resp 16 09/02/18 09:54 BP 140/83 09/02/18 09:54 Pulse Ox 98 09/02/18 09:54 Vital Signs Reviewed: Yes Eye Exam: Normal Eyes: Positive: Conjunctiva Clear Neck: Positive: Supple Respiratory: Positive: No respiratory distress Abdomen Description: Positive: Other: - GRAVID 36 WEEKS Musculoskeletal: Positive: Edema @ - B/L FEET AND ANKLES Neurological Exam: Normal Neurological: Positive: Alert, Muscle Tone Normal Psychological Exam: Normal Psychological: Positive: Normal Response To Family, Age Appropriate Behavior Skin: Positive: Other - ON THE TOPS OF BOTH FEET FINE PUNCTATE SLIGHTLY RAISED ERYTHEMATOUS RASH. NO CONFLUENCE. NO DRAINAGE. Lower Extremity Course/Dx - Course Course Of Treatment: Initial blood pressure 140/83. Recheck was 136/79. There was 1+ protein in the urine. Patient feels the baby moving has no headache no abdominal pain. She's had edema for about a month. The rash is new overnight. Clinically the rash may very well be a contact dermatitis. Therefore going to treat with topical hydrocortisone as needed. Also elevate the legs. Patient has a follow- up appointment scheduled with [facility] on September 04, 2018. I discussed the case with the [facility] on-call Dr. Mike. She requested blood work and to have the patient follow-up as scheduled. I let the patient know that if she felt worse with a headache abdominal pain or any other concerns she should get in contact with [facility] right away for further evaluation. - Differential Dx/Diagnosis Provider Diagnosis: Rash, Protein in urine, , Elevated blood pressure reading Discharge - Sign-Out/Discharge Documenting (check all that apply): Patient Departure All imaging exams completed and their final reports reviewed: No Studies - Discharge Plan Condition: Stable Disposition: HOME Prescriptions: Hydrocortisone 1 applic TOPICAL TID #28.4 gm Patient Education Materials: Acute Rash (ED), Hypertension During (ED ) Referrals: Frida Mike MD [Medical Doctor] - Additional Instructions: FOLLOW UP WITH OBGYN ON 09/04/18 SCHEDULED. GET RECHECKED SOONER IF YOUR CONDITION WORSENS; HEADACHE, ABDOMINAL PAIN, YOU FEEL ILL OR ANY QUESTIONS OR CONCERNS. - Billing Disposition and Condition Condition: STABLE Disposition: Home
[2018-09-02 10:20] VITALS: BP 136/79
[2018-09-02 14:26] LABS: ABS Basophils 0.1 10^3/ul (0-0.2); ABS Eosinophils 0.1 10^3/ul (0-0.6); ABS Lymphocytes 1.2 10^3/ul (1.0-4.8); ABS Monocytes 0.3 10^3/ul (0-0.8); ABS Neutrophils 7.8 10^3/ul (1.5-7.7); Eosinophil % 0.6 %; Hematocrit 30 % (35-47); Hemoglobin 9.4 g/dL (12.0-16.0); Lymphocyte % 12.9 %; Mean Corpuscular HGB Conc 31 g/dL (31-36); Mean Corpuscular Hemoglobin 16 pg (27-31); Mean Corpuscular Volume 51 fL (80-97); Mean Platelet Volume 8.7 fL (7.4-10.4); Nucleated Red Blood Cells % 0.1; Platelet Count 355 10^3/uL (150-450); Red Blood Count 5.92 10^6 /uL (3.70-4.87); Red Cell Distribution Width 20 % (10-15); White Blood Count 9.5 10^3/uL (3.5-10.8)
[2018-09-02 14:30] LABS: Albumin 3.3 g/dL (3.2-5.2); Calcium 8.7 mg/dL (8.6-10.3); Total Bilirubin 0.4 mg/dL (0.2-1.0)
[2018-09-02 14:36] LABS: Albumin/Globulin Ratio 1.2 (1-3); BUN/Creatinine Ratio 14.1 (8-20); EGFR African American 143.1 (>60); EGFR Non-African American 118.3 (>60); Globulin 2.8 g/dL (2-4); Total Protein 6.1 g/dL (6.4-8.9)
--- NOTE | 2018-09-03 15:58 | UC ---
- Progress Note Progress Note: urine culture no growth no change ljj 09/03/18 Course/Dx - Diagnoses Provider Diagnoses: Rash, Protein in urine, , Elevated blood pressure reading Discharge - Sign-Out/Discharge Documenting (check all that apply): Post-Discharge Follow Up All imaging exams completed and their final reports reviewed: No Studies - Discharge Plan Condition: Stable Disposition: HOME Prescriptions: Hydrocortisone 1 applic TOPICAL TID #28.4 gm Patient Education Materials: Acute Rash (ED), Hypertension During (ED ) Referrals: Frida Mike MD [Medical Doctor] - Additional Instructions: FOLLOW UP WITH OBGYN ON 09/04/18 SCHEDULED. GET RECHECKED SOONER IF YOUR CONDITION WORSENS; HEADACHE, ABDOMINAL PAIN, YOU FEEL ILL OR ANY QUESTIONS OR CONCERNS. - Billing Disposition and Condition Condition: STABLE Disposition: Home
== END 2018-09-02 10:50 | disposition home or self-care (01) ==
LOC: UCEAST 09:34
DX: O26.893 Other specified pregnancy related conditions, third trimester (principal); R21 Rash and other nonspecific skin eruption; O12.13 Gestational proteinuria, third trimester; O16.3 Unspecified maternal hypertension, third trimester; Z3A.36 36 weeks gestation of pregnancy
CPT/HCPCS: 36415; 80053; 81003; 82239; 85025; 87086; 99212; G0463

== ENCOUNTER 2018-09-20 17:57 | Inpatient (IN) | payer BC ==
[2018-09-20] MEDS ORDERED: Buffered Lidocaine 1% SYRIN* 1 ML/SYRINGE INTRADERM ONE (19:31)
[2018-09-20] MEDS ORDERED: Dinoprostone* 10 MG VAG.SUPP VAGINAL ONE (19:31)
[2018-09-20] MEDS ORDERED: Lactated Ringers 1000 ML Bag* 1,000 ML IV ONE (19:31)
--- NOTE | 2018-09-20 19:37 | HP ---
General Information - Reason for Visit induction for gestational diabetes - General Information Maternal Age: 18 Grav: 2 Para: 0 SAB: 1 IEA: 0 Estimated Due Date: 09/28/18 Determined By: Early Ultrasound Maternal Blood Type and Rh: O Positive - Results this Serology/RPR Result: Non-Reactive Rubella Result: Immune HBsAg Result: Negative HIV Result: Negative GBS Culture Result: Negative Past Medical History Delivery History: See Records Pertinent Past Medical History: See Records Pertinent Past Surgical History: See Records Pertinent Family History: See Records - Antepartal Records Antepartal Records: Reviewed, Complicated by: - diabetes/obesity/ hypothyroidism Review of Systems Constitutional: Comfortable CV Complaint: No Respiratory: Shortness of Breath: No Gastrointestinal: No Nausea/Vomiting Genitourinary: No Dysuria, No Bleeding, No Leaking Fluid Musculoskeletal: No Complaint Neurological: No Headache Movement: Normal Exam Allergies/Adverse Reactions: Allergies No Known Allergies Allergy (Verified 09/02/18 09:59) t: 98.5 P : 108 RR :20 BP: 86891 - Measurements Height: 5 ft 6 in Weight: 261 lb Weight in lbs: 261.030996 Body Mass Index (BMI): 42.1 Pre- Weight: 280 lb Weight Gained This : -19 lbs and 0 ozs - Exam Breast: Breast Exam Deferred CVA: No CVA Tenderness Extremities: No Edema HEENT: No Significant Findings Lungs: Clear Bilaterally Rectal: Rectal Exam Deferred Reflexes: DTR 2+ Thyroid: No Thyromegaly - Abdominal Exam Abdomen Exam: Non-Tender - Ultrasound/Biophysical Profile Ultrasound Status: Not Done Targeted Exam Findings Cervical Exam: Closed Effacement: Thick Station: -2 Presenting Part: Vertex Membrane Status: Intact EFM Findings - External Monitor Findings Baseline Heart Rate: 140 External Monitor Findings: Accelerations Present, No Pattern of Variable or Late Decelerations, Variability Moderate Contractions: None Assessment/Plan - Obstetrical Risk Factors Obstetrical Risk Factors: Obesity, Gestational Diabetes - Plan Plan: Cervical Ripening, Admit - Anticipate Vaginal Delivery
[2018-09-20] MEDS ORDERED: Lactated Ringers 1000 ML Bag* 1,000 ML IV SCH (20:00)
[2018-09-20 21:28] LABS: Urine Benzodiazepine Screen None Detected (None Detect); Urine Opiates Screen None Detected (None Detect)
[2018-09-21] MEDS ORDERED: Oxytocin in LR* 20 UNITS/1,000 ML BAG IVPB SCH (11:00)
[2018-09-21 11:43] LABS: ABS Basophils 0.1 10^3/ul (0-0.2); ABS Eosinophils 0.1 10^3/ul (0-0.6); ABS Lymphocytes 1.3 10^3/ul (1.0-4.8); ABS Monocytes 0.6 10^3/ul (0-0.8); ABS Neutrophils 8.1 10^3/ul (1.5-7.7); Eosinophil % 0.6 %; Hematocrit 31 % (35-47); Lymphocyte % 12.8 %; Mean Corpuscular HGB Conc 29 g/dL (31-36); Mean Corpuscular Hemoglobin 15 pg (27-31); Mean Corpuscular Volume 51 fL (80-97); Mean Platelet Volume 8.6 fL (7.4-10.4); Nucleated Red Blood Cells % 0.2; Platelet Count 320 10^3/uL (150-450); Red Blood Count 6.01 10^6 /uL (3.70-4.87); Red Cell Distribution Width 21 % (10-15); White Blood Count 10.1 10^3/uL (3.5-10.8)
[2018-09-21] MEDS ORDERED: Nalbuphine* 10 MG/ML 1 ML VIAL IV PRN (23:35)
[2018-09-21] MEDS ORDERED: Promethazine INJ(RESTRICTED)* 25 MG/ML 1 ML VIAL IV PRN (23:35)
[2018-09-22] MEDS ORDERED: OBEPIDURAL* 250 ML EPIDURAL ONE (00:48)
[2018-09-22] MEDS ORDERED: fentaNYL* 50 MCG/ML 2 ML VIAL (100 MCG VIAL) ONE ×2 (01:07→02:16)
[2018-09-22] MEDS ORDERED: Lidocaine 2% w/ EPI 1:200,000* 20 ML VIAL ONE (01:07)
[2018-09-22] MEDS ORDERED: Sodium Citrate/Citric Acid* 15 ML UDC PO PRN (02:05)
[2018-09-22] MEDS ORDERED: Lactated Ringers 1000 ML Bag* 500 ML IV PRN ×2 (02:05)
[2018-09-22] MEDS ORDERED: Phenylephrine 40 MCG/ML SYRINGE IV PUSH PRN ×2 (02:05)
[2018-09-22] MEDS ORDERED: Lactated Ringers 1000 ML Bag* 1,000 ML IV ONE (02:05)
[2018-09-22] MEDS ORDERED: Famotidine TAB* 20 MG PO PRN (02:05)
[2018-09-22] MEDS ORDERED: Bupivacaine 0.25% SDV PF* 10 ML VIAL INJ ONE (02:15)
[2018-09-22] MEDS ORDERED: Lactated Ringers 1000 ML Bag* 1,000 ML IV SCH ×2 (03:00→05:00)
[2018-09-22] MEDS ORDERED: OBEPIDURAL* 250 ML EPIDURAL SCH (03:00)
[2018-09-22] MEDS ORDERED: Dibucaine 1% 28.35 GM TUBE PR PRN (04:53)
[2018-09-22] MEDS ORDERED: Oxytocin in LR* 20 UNITS/1,000 ML BAG IVPB SCH (05:00)
[2018-09-22] MEDS ORDERED: ceFAZolin 1 GM ADVAN(*) 1 GM in NS 0.9% 50 ML* 50 ML IVPB ONE (05:02)
--- NOTE | 2018-09-22 05:02 | PROCNOTE ---
[facility] OB: Delivery Note - Delivery A Date of : 09/22/18 Time of : 04:14 Sex: Male Weight at : 6 lb 12 oz Score 1 Minute: 7 Score 5 Minutes: 9 Gestational Age in Weeks and Days at Delivery: 39 Weeks and 1 Days Delivery Method: Spontaneous Vaginal Labor: Induced Did Patient attempt ?: N/A, No Previous Amniotic Fluid: Clear Estimated Blood Loss: 350 Anesthesia/Analgesia: CEI for Labor Delivered By: Sascha Howe - Nursery Level of Nursery: Regular/Bedside - Perineum Perineal Injury: Vaginal Laceration Perineal Injury Comment: vaginal, right labial laceration Perineal Repair: By Delivering Practioner - Events Delivery Events of Note: Pitocin During Labor, Pitocin Only After Delivery, Supplemental O2 to Mother, Manual Removal of Placenta Delivery Events of Note Comment: Pt presented for IOL for diabetes found in early , otherwise well-controlled with diet. Induced initially with Cervidil followed by pitocin. Slow progress from 2 to 3cm (11 hrs). Pt received an epidural which was effective for all but one side. She progressed rapidly to 9cm, AROM was clear. She then started pushing. She pushed very well for just over 30 min to deliver the head in a controlled fashion, OA. Shoulders and body followed easily. Nuchal cord reduced after delivery. Cord doubly clamped and cut by father. IV pitocin increased. Placenta started to descend, but then stopped despite fundal massage and traction. Manual extraction required as the upper uterus initially would not release the placenta. Once it was grasped, it was able to be removed in one mass. A second sweep removed one small adherent placenta fragment. Fundus then firm and with minimal bleeding. A deep posterior vaginal lac and right labial lac were injected with 1% lidocaine, then repaired with 3-0 Vicryl Rapide.
[2018-09-22] MEDS: Witch Hazel PAD* JAR TOPICAL PRN (07:37)
[2018-09-22] MEDS: Ibuprofen TAB* 600 MG PO PRN ×3 (07:37→19:47)
[2018-09-22] MEDS ORDERED: Simethicone TAB* 80 MG TAB.CHEW PO SCH (08:30)
[2018-09-22] MEDS: Docusate CAP* 100 MG PO SCH ×3 (13:31→19:47)
[2018-09-22] MEDS: Acetaminophen TAB* 325 MG PO PRN (16:42)
[2018-09-22] MEDS: Ferrous Gluconate TAB* 324 MG TAB PO SCH (19:47)
[2018-09-23 05:53] LABS: ABS Basophils 0.1 10^3/ul (0-0.2); ABS Eosinophils 0.2 10^3/ul (0-0.6); ABS Lymphocytes 2.3 10^3/ul (1.0-4.8); ABS Monocytes 0.5 10^3/ul (0-0.8); ABS Neutrophils 6.2 10^3/ul (1.5-7.7); Eosinophil % 1.7 %; Hematocrit 22 % (35-47); Hemoglobin 6.9 g/dL (12.0-16.0); Lymphocyte % 25.2 %; Mean Corpuscular HGB Conc 31 g/dL (31-36); Mean Corpuscular Hemoglobin 16 pg (27-31); Mean Corpuscular Volume 51 fL (80-97); Mean Platelet Volume 8.4 fL (7.4-10.4); Nucleated Red Blood Cells % 0.2; Platelet Count 236 10^3/uL (150-450); Red Blood Count 4.35 10^6 /uL (3.70-4.87); Red Cell Distribution Width 20 % (10-15); White Blood Count 9.3 10^3/uL (3.5-10.8)
[2018-09-23] MEDS: Ferrous Gluconate TAB* 324 MG TAB PO SCH ×2 (08:41→20:59)
[2018-09-23] MEDS: Witch Hazel PAD* JAR TOPICAL PRN (08:41)
[2018-09-23] MEDS: Docusate CAP* 100 MG PO SCH ×3 (09:00→20:59)
[2018-09-23] MEDS: Ibuprofen TAB* 600 MG PO PRN ×2 (10:55→17:24)
[2018-09-23] MEDS: Acetaminophen TAB* 325 MG PO PRN (20:59)
[2018-09-24] MEDS: Ibuprofen TAB* 600 MG PO PRN (07:37)
[2018-09-24] MEDS: Ferrous Gluconate TAB* 324 MG TAB PO SCH (07:37)
[2018-09-24] MEDS: Docusate CAP* 100 MG PO SCH (07:38)
[2018-09-24 07:58] VITALS: BP 133/73
== END 2018-09-24 11:20 | disposition home or self-care (01) | DRG 560 ==
LOC: MCHOBOUT 17:57 → MCHOB 19:36
PROVIDERS: ADMIT Obstetrics & Gynecology; ATTEND Obstetrics & Gynecology
PROC: 10E0XZZ Delivery of Products of Conception, External Approach (ICD-10-PCS; principal; 2018-09-22)
PROC: 3E033VJ Introduction of Other Hormone into Peripheral Vein, Percutaneous Approach (ICD-10-PCS; 2018-09-22)
PROC: 10907ZC Drainage of Amniotic Fluid, Therapeutic from Products of Conception, Via Natural or Artificial Opening (ICD-10-PCS; 2018-09-22)
PROC: 0KQM0ZZ Repair Perineum Muscle, Open Approach (ICD-10-PCS; 2018-09-22)
DX: O24.429 Gestational diabetes mellitus in childbirth, unspecified control (principal); O71.4 Obstetric high vaginal laceration alone; Z37.0 Single live birth; O99.284 Endocrine, nutritional and metabolic diseases complicating childbirth; E03.9 Hypothyroidism, unspecified; O99.214 Obesity complicating childbirth; O99.344 Other mental disorders complicating childbirth; F41.9 Anxiety disorder, unspecified; O69.81X0 Labor and delivery complicated by cord around neck, without compression, not applicable or unspecified; O90.81 Anemia of the puerperium; D64.9 Anemia, unspecified; Z3A.39 39 weeks gestation of pregnancy
CPT/HCPCS: 36415; 59200; 80307; 85025; 86850; 86900; 86901; A9270-GY; J0690; J2300; J2550; J3010; J3490

== ENCOUNTER 2018-10-19 22:52 | Observation (INO) | payer BC ==
[2018-10-19] MEDS ORDERED: NS 0.9% 1000 ML** 1,000 ML IV ONE (23:13)
--- NOTE | 2018-10-20 00:22 | ED ---
GI/ HPI - HPI Summary HPI Summary: 18 year old female presents with vaginal bleeding for past month. She delivered a baby vaginally on August 23. States that since then she has been having spotting every day. States that today the bleeding and pain increased. She has been passing small clots. states that bleeding is less than a period. Yesterday she became dizzy when she stood up. Has history anemia and takes iron for it but has not had it in the past 3 days. Also has history of thalassemia. She admits to crampy lower abdominal pain. Admits to nausea. No vomiting. No urinary symptoms. No fevers or chills. - History of Current Complaint Chief Complaint: EDVaginalBleeding Time Seen by Provider: 10/19/18 23:07 Stated Complaint: HEAVY VAGINAL BLEEDING AND CRAMPING PER PT Hx Last Menstrual Period: nov Pain Intensity: 4 - Allergy/Home Medications Allergies/Adverse Reactions: Allergies Allergy/AdvReac Type Severity Reaction Status Date / Time No Known Allergies Allergy Verified 10/19/18 23:25 Home Medications: Home Medications NK [No Home Medications Reported] 10/20/18 [History Confirmed 10/20/18] PMH/Surg Hx/FS Hx/Imm Hx Endocrine/Hematology History: Reports: Hx Diabetes - type 2- dx with , Hx Thyroid Disease - hypothyroid Denies: Hx Anticoagulant Therapy Cardiovascular History: Denies: Hx Congestive Heart Failure, Hx Deep Vein Thrombosis, Hx Hypertension , Hx Myocardial Infarction, Hx Pacemaker/ICD Respiratory History: Denies: Hx Asthma, Hx Chronic Obstructive Pulmonary Disease (COPD), Hx Lung Cancer, Hx Pneumonia, Hx Pulmonary Embolism GI History: Denies: Hx Gall Bladder Disease, Hx Gastrointestinal Bleed, Hx Ulcer, Hx Urosepsis History: Denies: Hx Dialysis, Hx Kidney Stones, Hx Renal Disease Neurological History: Denies: Hx Dementia, Hx Migraine, Hx Seizures, Hx Transient Ischemic Attacks (TIA) Psychiatric History: Reports: Hx Anxiety - panic disorder Denies: Hx Depression, Hx Schizophrenia, Hx Bipolar Disorder - Cancer History Cancer Type, Location and Year: denies - Surgical History Surgery Procedure, Year, and Place: Tonsillectomy - Immunization History Date of Influenza Vaccine: 03/2018 Infectious Disease History: No Infectious Disease History: Denies: Hx Clostridium Difficile, Hx Hepatitis, Hx Human Immunodeficiency Virus (HIV), Hx of Known/Suspected MRSA, Hx Shingles, Hx Tuberculosis, Hx Known/ Suspected VRE, Hx Known/Suspected VRSA, History Other Infectious Disease, Traveled Outside the [place] in Last 30 Days - Family History Known Family History: Positive: Diabetes, Other - irritable bowel (mother), gastroschisis (sister) Negative: Cardiac Disease, Hypertension, Blood Disorder - Social History Alcohol Use: None Hx Substance Use: No Substance Use Type: Reports: None Smoking Status (MU): Never Smoked Tobacco Review of Systems Negative: Fever Negative: Chest Pain Negative: Shortness Of Breath Positive: Abdominal Pain, Nausea, Other - vaginal bleeding All Other Systems Reviewed And Are Negative: Yes Physical Exam Triage Information Reviewed: Yes Vital Signs On Initial Exam: Initial Vitals Temp Pulse Resp BP Pulse Ox 97.8 F 92 18 144/85 96 10/19/18 22:53 10/19/18 22:53 10/19/18 22:53 10/19/18 22:53 10/19/18 22:53 Vital Signs Reviewed: Yes Appearance: Positive: Well-Appearing Skin: Positive: Warm, Dry Head/Face: Positive: Normal Head/Face Inspection Eyes: Positive: Normal, Conjunctiva Clear ENT: Positive: Pharynx normal Respiratory/Lung Sounds: Positive: Clear to Auscultation, Breath Sounds Present Cardiovascular: Positive: Normal, RRR Abdomen Description: Positive: Soft, Other: - tenderness in lower abd Bowel Sounds: Positive: Present Musculoskeletal: Positive: Normal Neurological: Positive: Normal Psychiatric: Positive: Normal Diagnostics - Vital Signs Vital Signs Temp Pulse Resp BP Pulse Ox 10/19/18 23:27 82 141/86 100 10/19/18 23:24 83 100 10/19/18 22:53 97.8 F 92 18 144/85 96 - Laboratory Result Diagrams: 10/20/18 07:42 10/20/18 00:29 Lab Statement: Any lab studies that have been ordered have been reviewed, and results considered in the medical decision making process. - Ultrasound No standard instances Ultrasound Interpretation Completed By: Radiologist Summary of Ultrasound Findings: IMPRESSION: 1. Thickened endometrial canal containing hyperechoic material measuring 4.2 x. 3.9 x 2.4 cm consistent with retained products of conception. 2. Otherwise negative pelvic sonogram. To contact [facility] with a general question: Re-Evaluation - Re-Evaluation First Eval Re-Evaluation Time: 01:23 Comment: patient feeling better, no longer dizzy GIGU Course/Dx - Course Course Of Treatment: 18 year old female presents with vaginal bleeding for past month. She delivered a baby vaginally on August 23. States that since then she has been having spotting every day. States that today the bleeding and pain increased. She has been passing small clots. states that bleeding is less than a period. Yesterday she became dizzy when she stood up. Has history anemia and takes iron for it. Also has history of thalassemia. She admits to crampy lower abdominal pain. Admits to nausea. No vomiting. No urinary symptoms. No fevers or chills. on exam tenderness in lower abd. vitals stable. u/s shows retained product. wbc normal. hemoglobin 8.5. vitals not orthostatic. patient feeling better. urine likely contaminant. discussed with ob who will see patient in ED. patient will be signed out pending ob for dispo - Diagnoses Differential Diagnoses - Female: Other - RPOC, sepsis, menses Provider Diagnoses: Retained products of conception, Episode of heavy vaginal bleeding, History of anemia, Thalassemia Discharge - Sign-Out/Discharge Documenting (check all that apply): Sign-Out Patient Signing out patient TO: Denzel Nunn - Discharge Plan Condition: Fair Disposition: ADMITTED TO [facility] - Billing Disposition and Condition Condition: FAIR Disposition: Admitted to [facility]
[2018-10-20 00:45] LABS: ABS Eosinophils 0.2 10^3/ul (0-0.6); ABS Lymphocytes 1.5 10^3/ul (1.0-4.8); ABS Monocytes 0.6 10^3/ul (0-0.8); ABS Neutrophils 7.2 10^3/ul (1.5-7.7); Eosinophil % 2.2 %; Hematocrit 29 % (35-47); Hemoglobin 8.5 g/dL (12.0-16.0); Lymphocyte % 15.6 %; Mean Corpuscular HGB Conc 30 g/dL (31-36); Mean Corpuscular Hemoglobin 16 pg (27-31); Mean Corpuscular Volume 53 fL (80-97); Mean Platelet Volume 8.5 fL (7.4-10.4); Platelet Count 376 10^3/uL (150-450); Red Blood Count 5.43 10^6 /uL (3.70-4.87); Red Cell Distribution Width 22 % (10-15); White Blood Count 9.4 10^3/uL (3.5-10.8)
[2018-10-20 00:47] LABS: Activated Partial Thrombo Time 36.6 seconds (26.0-38.0); INR 1.15 (0.82-1.09)
[2018-10-20 00:56] LABS: Albumin 3.8 g/dL (3.2-5.2); Albumin/Globulin Ratio 1.4 (1-3); BUN/Creatinine Ratio 13.9 (8-20); C Reactive Protein 12.89 mg/L (<8.01); Calcium 9.1 mg/dL (8.6-10.3); EGFR African American 112.3 (>60); EGFR Non-African American 92.8 (>60); Globulin 2.8 g/dL (2-4); Potassium 3.4 mmol/L (3.5-5.0); Total Bilirubin 0.3 mg/dL (0.2-1.0); Total Protein 6.6 g/dL (6.4-8.9)
[2018-10-20 01:02] LABS: HCG Pregnancy 10.05 mIU/mL
[2018-10-20 01:23] LABS: Urine Appearance Cloudy; Urine Bacteria Absent (Absent); Urine Bilirubin Negative (Negative); Urine Blood 3+ (Negative); Urine Glucose Negative (Negative); Urine Ketones Negative (Negative); Urine Nitrite Negative (Negative); Urine Protein 1+(30 mg/dL) (Negative); Urine Red Blood Cell 3+(>10/hpf) (Absent); Urine Squamous Epithelial Cell Present (Absent); Urine Urobilinogen Negative (Negative); Urine White Blood Cell 3+(>20/hpf) (Absent)
[2018-10-20 01:31] LABS: Urine Color Red
--- NOTE | 2018-10-20 02:39 | HP ---
General Information - Reason for Visit CC: 4 weeks with heavy vaginal bleeding HPI: Patient is 18 year old who is approximately 4 weeks with spontaneous vaginal delivery on September 22, 2018. She was induced at 39 weeks due to history of diet controlled gestational diabetes. She had a spontaneous vaginal delivery with a manual removal of her placenta. She stated that she had heavy vaginal flow for the first 2 days following delivery but then the vaginal bleeding slowed to spotting until yesterday when she had very heavy for the past 2 days with some dizziness yesterday. She has some cramps with the vaginal bleeding as well. She is bottle feeding her . - General Information Maternal Age: 18 Grav: 2 Para: 1 SAB: 1 IEA: 0 Estimated Due Date: 09/28/18 Determined By: Early Ultrasound Maternal Blood Type and Rh: O Positive - Results this Serology/RPR Result: Non-Reactive Rubella Result: Immune HBsAg Result: Negative HIV Result: Negative GBS Culture Result: Negative Past Medical History Delivery History: Hx Uncomplicated Vaginal Delivery Delivery History Comment: manual removal of placenta Past Medical History Comment: Past Medical History: Iron deficiency anemia with underlying thalassemia known to Dr. Patric Del Valle Gestational diabetes A1 hypothyroidism, not currently on medication premature at , no current pulmonary issues Family History Comment: Father with diabetes, Paternal grandfather with thalassemia, mother and sister anemia, mother has hypothyroidism Review of Systems CV Complaint: No Respiratory: Shortness of Breath: No Gastrointestinal: No Nausea/Vomiting Genitourinary: Bleeding Musculoskeletal: Abdominal Pain Neurological: No Headache - Comments dizziness yesterday Exam Allergies/Adverse Reactions: Allergies No Known Allergies Allergy (Verified 10/19/18 23:25) Vital Signs 10/19/18 10/19/18 10/19/18 22:53 23:24 23:27 Temperature 97.8 F Pulse Rate 92 83 82 Respiratory 18 Rate Blood Pressure 144/85 141/86 (mmHg) O2 Sat by Pulse 96 100 100 Oximetry 10/19/18 10/19/18 10/20/18 23:50 23:56 00:00 Temperature Pulse Rate 104 80 77 Respiratory Rate Blood Pressure 123/69 (mmHg) O2 Sat by Pulse 98 100 100 Oximetry 10/20/18 10/20/18 10/20/18 00:30 00:31 00:32 Temperature Pulse Rate 80 83 102 Respiratory Rate Blood Pressure 114/63 135/80 128/78 (mmHg) O2 Sat by Pulse Oximetry 10/20/18 10/20/18 10/20/18 00:53 00:54 00:57 Temperature Pulse Rate 94 84 100 Respiratory Rate Blood Pressure 114/63 135/80 128/78 (mmHg) O2 Sat by Pulse 98 100 100 Oximetry 10/20/18 10/20/18 01:05 01:27 Temperature Pulse Rate 80 93 Respiratory Rate Blood Pressure 128/61 (mmHg) O2 Sat by Pulse 100 100 Oximetry Lab Values - Entire Visit: Laboratory Tests 10/20/18 10/20/18 10/20/18 00:29 00:29 00:29 WBC 9.4 RBC 5.43 H Hgb 8.5 L Hct 29 L MCV 53 L MCH 16 L MCHC 30 L RDW 22 H Plt Count 376 MPV 8.5 Neut % (Auto) 75.9 Lymph % (Auto) 15.6 [place] % (Auto) 5.9 Eos % (Auto) 2.2 Baso % (Auto) 0.4 Absolute Neuts (auto) 7.2 Absolute Lymphs (auto) 1.5 Absolute Monos (auto) 0.6 Absolute Eos (auto) 0.2 Absolute Basos (auto) 0.0 Absolute Nucleated RBC 0.0 Nucleated RBC % 0.0 INR (Anticoag Therapy) 1.15 H APTT 36.6 Sodium 139 Potassium 3.4 L Chloride 104 Carbon Dioxide 29 Anion Gap 6 BUN 11 Creatinine 0.79 Est GFR ( Amer) 112.3 Est GFR (Non-Af Amer) 92.8 BUN/Creatinine Ratio 13.9 Glucose 139 H Calcium 9.1 Total Bilirubin 0.30 AST 14 ALT 15 Alkaline Phosphatase 60 C-Reactive Protein 12.89 H Total Protein 6.6 Albumin 3.8 Globulin 2.8 Albumin/Globulin Ratio 1.4 Beta HCG, Quant 10.05 Urine Color Urine Appearance Urine pH Ur Specific [place] Urine Protein Urine Ketones Urine Blood Urine Nitrate Urine Bilirubin Urine Urobilinogen Ur Leukocyte Esterase Urine WBC (Auto) Urine RBC (Auto) Ur Squamous Epith Cells Urine Bacteria Urine Glucose Blood Type Antibody Screen 10/20/18 10/20/18 00:29 01:05 WBC RBC Hgb Hct MCV MCH MCHC RDW Plt Count MPV Neut % (Auto) Lymph % (Auto) [place] % (Auto) Eos % (Auto) Baso % (Auto) Absolute Neuts (auto) Absolute Lymphs (auto) Absolute Monos (auto) Absolute Eos (auto) Absolute Basos (auto) Absolute Nucleated RBC Nucleated RBC % INR (Anticoag Therapy) APTT Sodium Potassium Chloride Carbon Dioxide Anion Gap BUN Creatinine Est GFR ( Amer) Est GFR (Non-Af Amer) BUN/Creatinine Ratio Glucose Calcium Total Bilirubin AST ALT Alkaline Phosphatase C-Reactive Protein Total Protein Albumin Globulin Albumin/Globulin Ratio Beta HCG, Quant Urine Color Red A Urine Appearance Cloudy Urine pH 6.0 Ur Specific [place] 1.010 Urine Protein 1+(30 mg/dl) A Urine Ketones Negative Urine Blood 3+ A Urine Nitrate Negative Urine Bilirubin Negative Urine Urobilinogen Negative Ur Leukocyte Esterase 2+ A Urine WBC (Auto) 3+(>20/hpf) A Urine RBC (Auto) 3+(>10/hpf) A Ur Squamous Epith Cells Present A Urine Bacteria Absent Urine Glucose Negative Blood Type O Positive Antibody Screen Negative - Measurements Height: 1.68 m Weight: 106.594 kg Body Mass Index (BMI): 37.9 Pre- Weight: 127.006 kg - Exam CVA: No CVA Tenderness Extremities: No Edema Rectal: Rectal Exam Deferred Other Exam Findings: Speculum exam, dark red blood in vagina, cervix appears parous and closed, no tissue in os bimanual exam uterus 6 weeks in size, nontender, no adnexal masses noted - Abdominal Exam Abdomen Exam: Non-Tender Abdomen Exam Comment: soft, no masses noted - Ultrasound/Biophysical Profile Ultrasound Status: Radiology Department Full Exam - Patient with ultrasound findings consistent with retained products of conception 4cm in diameter Assessment/Plan - Plan Plan Comment: Assessment; diagnosis of retained products of conception, vaginal bleeding episode, history of anemia with underlying thalassemia. Plan: Admit, add on to OR schedule, NPO, type and cross, IV fluid - Date/Time of Admission Date of Admission: 10/20/18 - retained products of conception, vaginal bleeding
--- NOTE | 2018-10-20 03:01 | ED ---
Progress - Progress Note Progress Note: This patient is a sign-out from LEANN Soto to Denzel Nunn MD at 0230 on 10/20/18 at shift change pending OB disposition. Re-Evaluation - Re-Evaluation First Eval Re-Evaluation Time: 01:23 Comment: patient feeling better, no longer dizzy Course/Dx - Course Course Of Treatment: This patient is a sign-out from LEANN Soto to Denzel Nunn MD at 0230 on 10/20/18 at shift change pending OB disposition. Discussed patient case with ALEXEY Garcia, who diagnosed the pt with retained products of conception, vaginal bleeding, and history of anemia with underlying thalassemia. Dr. Maher accepted the patient for admission and scheduled her for the OR. - Diagnoses Provider Diagnoses: Retained products of conception, Episode of heavy vaginal bleeding, History of anemia, Thalassemia - Provider Notifications Discussed Care Of Patient With: Kymberly Maher Time Discussed With Above Provider: 03:20 Instructed by Provider To: Other - Discussed patient case with ALEXEY Garcia , who diagnosed the pt with retained products of conception, vaginal bleeding, and history of anemia with underlying thalassemia. The patient will be admitted and scheduled for the OR. Discharge - Sign-Out/Discharge Documenting (check all that apply): Patient Departure - Admit Patient Received Moderate/Deep Sedation with Procedure: No - Discharge Plan Condition: Good Disposition: ADMITTED TO [facility] - Billing Disposition and Condition Condition: GOOD Disposition: Admitted to [facility] - Attestation Statements Document Initiated by Errole: Yes Documenting Scribe: Hunter Galvin Provider For Whom Nayely is Documenting (Include Credential): MD Nayely Marrero Attestation: Hunter Camarena, scribed for Denzel Nunn MD on 10/21/18 at 0424. Scribe Documentation Reviewed: Yes Provider Attestation: The documentation as recorded by the Hunter mcleod accurately reflects the service I personally performed and the decisions made by me, Denzel Nunn MD Status of Scribanahi Document: Viewed
[2018-10-20] MEDS ORDERED: Lactated Ringers 1000 ML Bag* 1,000 ML IV SCH ×2 (07:00→16:00)
[2018-10-20 07:54] LABS: Hematocrit 27 % (35-47); Hemoglobin 8.4 g/dL (12.0-16.0); Mean Corpuscular HGB Conc 31 g/dL (31-36); Mean Corpuscular Hemoglobin 16 pg (27-31); Mean Corpuscular Volume 52 fL (80-97); Red Blood Count 5.21 10^6 /uL (3.70-4.87); Red Cell Distribution Width 21 % (10-15); White Blood Count 8.8 10^3/uL (3.5-10.8)
[2018-10-20 08:31] LABS: ABS Basophils 0.1 10^3/ul (0-0.2); ABS Eosinophils 0.2 10^3/ul (0-0.6); ABS Lymphocytes 1.7 10^3/ul (1.0-4.8); ABS Monocytes 0.5 10^3/ul (0-0.8); ABS Neutrophils 6.4 10^3/ul (1.5-7.7); Lymphocyte % 18.7 %; Mean Platelet Volume 8.7 fL (7.4-10.4); Nucleated Red Blood Cells % 0.1; Platelet Count 335 10^3/uL (150-450)
[2018-10-20 08:50] LABS: TSH (Thyroid Stimulating Horm) 6.69 mcIU/mL (0.34-5.60)
[2018-10-20] MEDS ORDERED: Midazolam* 1 MG/ML 5 ML VIAL (5 MG) ONE (15:01)
[2018-10-20] MEDS ORDERED: Propofol* 10 MG/ML 20 ML BTL ONE (15:01)
[2018-10-20] MEDS ORDERED: fentaNYL* 50 MCG/ML 2 ML VIAL (100 MCG VIAL) ONE (15:01)
[2018-10-20] MEDS ORDERED: Lidocaine 2% PF * 5 ML VIAL ONE (15:02)
[2018-10-20] MEDS ORDERED: Buffered Lidocaine 1% SYRIN* 1 ML/SYRINGE INTRADERM ONE (15:16)
[2018-10-20] MEDS ORDERED: DOXYcycline IV* 200 MG in NS 0.9% 250 ML* 250 ML IVPB ONE (16:12)
--- NOTE | 2018-10-20 16:20 | PN ---
Progress Note - Progress Note Date of Service: 10/20/18 Note: Pt is 4 wks s/p complicated by retained placenta requiring manual extraction in the delivery room. At the time, the uterine cavity felt smooth and without additional tissue. Pt reports fairly heavy bleeding for a few days which slowed to spotting for the past few weeks. Yesterday she started having fairly heavy bleeding, so she came to the ER. U/S was notable for an approx 4cm area in the uterus consistent with retained placental tissue. Pt with normal WBC and no left shift. Bleeding has been mostly light until just recently when it has increased again. Pt denies any F/C, N/V. Exam last night showed uterus was small and nontender. Discussed surgery today. Recommend D&C of tissue with ultrasound guidance. Discussed risks of hemorrhage, transfusion, infection, uterine perforation, bowel/bladder injury, and anesthesia complications. All questions answered. Consent signed.
[2018-10-20] MEDS ORDERED: oxyCODONE/Acetamin 5/325 MG* TAB PO PRN (16:51)
[2018-10-20] MEDS ORDERED: Naloxone* 0.4 MG/ML 1 ML VIAL IV PRN (16:51)
[2018-10-20] MEDS ORDERED: fentaNYL* 50 MCG/ML 2 ML VIAL (100 MCG VIAL) IV PRN (16:51)
[2018-10-20] MEDS ORDERED: Acetaminophen TAB* 325 MG PO PRN (16:51)
[2018-10-20] MEDS ORDERED: Ondansetron INJ* 2 MG/ML VIAL IV PRN (16:51)
[2018-10-20] MEDS ORDERED: Ketorolac INJ* 15 MG/ML 1 ML VIAL IV PUSH ONE (18:06)
[2018-10-20] MEDS ORDERED: Ketorolac INJ* 30 MG/ML 1 ML VIAL ONE (18:06)
[2018-10-20 19:45] VITALS: BP 109/67
[2018-10-22 14:07] LABS: Chlamydia trachomatis NAA Negative (Negative); Neisseria gonorrhoeae (GC) NAA Negative (Negative)
--- NOTE | 2018-10-26 18:19 | OP ---
DATE OF OPERATION: 10/20/18 - ROOM #332 DATE OF : 98 SURGEON: Sascha Howe MD IRON MOLDER HELPER: Kymberly Maher MD ANESTHESIOLOGIST: Dr. Davey. ANESTHESIA: Spinal. PRE-OP DIAGNOSES: Four weeks with retained placenta and heavy bleeding. POST-OP DIAGNOSES: Four weeks with retained placenta and heavy bleeding. OPERATIVE PROCEDURE: Suction dilation and curettage with vacuum assist. MATERIALS TO LAB: Intrauterine contents. ESTIMATED BLOOD LOSS: 100 cc. URINE OUTPUT: 100 cc. IV FLUIDS: 500 cc lactated Ringer's. INDICATIONS: This patient is a 18-year-old 2, para 1-0-1-1, who delivered 4 weeks ago by a spontaneous vaginal delivery, which was complicated by retained placenta, which required manual extraction at delivery. At that time, there was no additional palpable tissue within the uterine cavity. The patient was discharged without any issues and within a couple of days , her bleeding had slowed down to minimal spotting. The patient did not have any significant bleeding for the next 3 weeks, but then yesterday began to have fairly heavy bleeding again. On evaluation in the emergency room, ultrasound was notable for an approximately 4-cm segment of echogenic material within the uterine cavity consistent with likely retained placental tissue. The patient was extensively counseled for a suction dilation and curettage and consent was signed. FINDINGS: Approximately 2 x 4 cm piece of tissue which appeared to be necrotic placenta. This was removed completely under the ultrasound guidance. COMPLICATIONS: None. DESCRIPTION OF PROCEDURE: The risks, benefits, and alternatives were described to the patient and informed consent was obtained. The patient was taken to the operating room with IV running where spinal anesthesia was induced and found to be adequate. The patient was prepped and draped in the normal sterile fashion in the high lithotomy position in [facility]. A time-out was performed. The bladder was emptied. A bivalve speculum was placed in the vagina and a single tooth tenaculum was placed on the anterior cervix. The cervix was then gently dilated using Hegar dilators until a size 12 suction curette was able to be inserted to the cervix. Of note, this required minimal dilation. At this time, the suction curette was advanced and suction was activated. When the suction curette was removed, a large piece of tissue was attached to it and was removed without difficulty. On ultrasound, there did not appear to be any additional tissue left. A sharp curettage with a medium banjo curette was performed with minimal additional tissue obtained. At that time, the uterine fundus was firm. There was minimal bleeding. The tenaculum was removed from the cervix and there was good hemostasis. The patient tolerated the procedure well. Sponge, lap, and needle counts were correct x2. [id number]/[facility] #: [id number] [facility]
--- NOTE | 2018-11-07 16:04 | DS ---
DISCHARGE SUMMARY: DATE OF ADMISSION: 10/20/18 DATE OF DISCHARGE: 10/20/18 HOSPITAL COURSE: This patient was a 18-year-old 2, para 1-0-1-1, admitted for observation at 4 weeks when she presented to the emergency room with heavy bleeding for the first time since delivery. The patient's vaginal delivery had been uncomplicated other than for retained placenta requiring manual extraction of the placenta. On ultrasound in the ER, there was an approximately 4 cm density within the uterus which appeared to be likely consistent with a retained fragment of placenta. The patient's bleeding had decreased, so she was put on the OR schedule for that day. She then underwent a suction dilatation and curettage with ultrasound guidance. This was productive of an approximately 2 x 4 cm fragment of tissue consistent with likely retained placenta. The procedure was uncomplicated and the patient had an uncomplicated recovery. She was discharged to home within 2 hours of the procedure. DISCHARGE PHYSICAL EXAMINATION: Vital signs within normal limits. Afebrile. Abdomen: Soft and nontender. DISCHARGE LABORATORY INFORMATION: None. DISCHARGE DIAGNOSES: hemorrhage with retained products of conception , status post suction dilation and curettage with ultrasound guidance. CONDITION: Good. DISPOSITION: Discharged to home. [id number]/[facility] #: [id number] [facility]afael[facility]
== END 2018-10-20 19:30 | disposition home or self-care (01) ==
LOC: ED 22:52 → SSU 10-20 03:58
PROVIDERS: ADMIT Specialist; ATTEND Obstetrics & Gynecology
PROC: 10D17ZZ Extraction of Products of Conception, Retained, Via Natural or Artificial Opening (ICD-10-PCS; principal; 2018-10-20 13:00)
DX: O72.2 Delayed and secondary postpartum hemorrhage (principal); D50.9 Iron deficiency anemia, unspecified; D56.9 Thalassemia, unspecified; O24.439 Gestational diabetes mellitus in the puerperium, unspecified control; E03.9 Hypothyroidism, unspecified; Z79.899 Other long term (current) drug therapy
CPT/HCPCS: 36415; 76856; 80053; 81003; 81015; 83036; 84443; 84702; 85025; 85610; 85730; 86140; 86850; 86900; 86901; 87086; 87480; 87491; 87510; 87591; 87661; 88307; 96361; 96374; 99285; G0378; J1885; J2250; J2704; J3010

== ENCOUNTER 2018-12-25 10:07 | Emergency (ER) | payer BC ==
[2018-12-25 10:44] VITALS: BP 119/70
--- NOTE | 2018-12-25 10:55 | UC ---
Throat Pain/Nasal Anthony HPI - HPI Summary HPI Summary: 18-year-old female who's had a sore throat and fever over the past 3 days since Monday. She states the fever broke yesterday but she has continued with the sore throat. She has a 3-month-old child at home and just wants to be checked for strep. - History of Current Complaint Chief Complaint: UCGeneralIllness Stated Complaint: SORE THROAT HEADACHE Time Seen by Provider: 12/25/18 10:33 Hx Obtained From: Patient Hx Last Menstrual Period: 12/17/18 ?: No Onset/Duration: Gradual Onset Severity: Mild Pain Intensity: 4 Associated Signs & Symptoms: Positive: Fever - Patient states the fever broke yesterday. - Allergies/Home Medications Allergies/Adverse Reactions: Allergies Allergy/AdvReac Type Severity Reaction Status Date / Time shellfish derived Allergy Difficulty Verified 12/25/18 10:38 Breathing Home Medications: Home Medications Ibuprofen TAB* [Motrin TAB* 400 MG] 400 mg PO ONCE 12/25/18 [History Confirmed 12/25/18] PMH/Surg Hx/FS Hx/Imm Hx Previously Healthy: Yes Endocrine History: Diabetes, Hypothyroidism Other History Of: Negative For: HIV, Hepatitis B, Hepatitis C, Anticoagulant Therapy - Surgical History Surgical History: Yes Surgery Procedure, Year, and Place: Tonsillectomy, [facility] - Family History Known Family History: Positive: Diabetes, Other - irritable bowel (mother), gastroschisis (sister) Negative: Cardiac Disease, Hypertension, Blood Disorder - Social History Alcohol Use: None Substance Use Type: None Smoking Status (MU): Never Smoked Tobacco - Immunization History Most Recent Influenza Vaccination: 04/30/18 Most Recent Tetanus Shot: utd Most Recent Pneumonia Vaccination: never Vaccination Up to Date: Yes Review of Systems All Other Systems Reviewed And Are Negative: Yes Constitutional: Positive: Fever - Fever broke yesterday. ENT: Positive: Sore Throat Is Patient Immunocompromised?: No Physical Exam Triage Information Reviewed: Yes Appearance: Well-Appearing, No Pain Distress, Well-Nourished Vital Signs: Initial Vital Signs Temp 98.2 F 12/25/18 10:39 Pulse 87 12/25/18 10:39 Resp 18 12/25/18 10:39 BP 119/70 12/25/18 10:39 Pulse Ox 102 12/25/18 10:39 Vital Signs Reviewed: Yes Eyes: Positive: Conjunctiva Clear ENT: Positive: Hearing grossly normal, TMs normal, Uvula midline, Other - Patient has 2 very small aphthous ulcers on her right tonsil. Neck: Positive: Supple, Nontender, No Lymphadenopathy Respiratory: Positive: Lungs clear, Normal breath sounds, No respiratory distress, No accessory muscle use Cardiovascular: Positive: RRR, No Murmur, Pulses Normal, Brisk Capillary Refill Abdomen Description: Positive: Nontender, No Organomegaly, Soft. Negative: CVA Tenderness (R), CVA Tenderness (L), Hepatomegaly, Splenomegaly Bowel Sounds: Positive: Present Musculoskeletal Exam: Normal Neurological Exam: Normal Psychological Exam: Normal Skin Exam: Normal Throat Pain/Nasal Course/Dx - Course Course Of Treatment: Rapid strep: Negative Patient is comfortable here. I believe at this point time this is a viral illness and she is to follow-up with her primary care provider if no improvement in 3 or 4 days. - Differential Dx/Diagnosis Provider Diagnosis: Pharyngitis Discharge ED - Sign-Out/Discharge Documenting (check all that apply): Patient Departure All imaging exams completed and their final reports reviewed: No Studies - Discharge Plan Condition: Good Disposition: HOME Patient Education Materials: Pharyngitis (ED) Referrals: [facility] [Outside] No Primary Care Phys,NOPCP [Primary Care Provider] - Additional Instructions: Increase fluids, warm saltwater gargles, throat lozenges. May take ibuprofen as directed for pain. Follow-up with your primary care provider if no improvement in 3 or 4 days. - Billing Disposition and Condition Condition: GOOD Disposition: Home
== END 2018-12-25 11:30 | disposition home or self-care (01) ==
LOC: UCEAST 10:07
DX: J02.9 Acute pharyngitis, unspecified (principal); Z91.013 Allergy to seafood
CPT/HCPCS: 87651; 99211; G0463

== ENCOUNTER 2019-05-18 04:21 | Emergency (ER) | payer BC, MEDICAID ==
--- OUTSIDE RECORDS SUMMARY | 2019-05-18 04:37 | XMS REPORT | Summary of Care ---
:2000 Author Organization [facility] Address [address] [place] [address] Care Team Providers Name Role Phone None, [place] Primary Care Provider Unavailable Reason for Visit Reason Comments Anxiety pt states she had a baby 6 months ago and over this time anxiety has gotten worse. also would liek her TSH checked Encounter Details Date Type Department Care Team Description 03/27/2019 Office Visit [place] Manuela Bermeo, [place] (Primary Dx) ; Practice [facility] Malaise and fatigue [address] [place] [address] [place] [address] [phone] Allergies No Known Allergiesdocumented as of this encounter (statuses as of 03/27/2019) Medications No known medicationsdocumented as of this encounter (statuses as of 03/27/2019) Active Problems No known active problemsdocumented as of this encounter (statuses as of 2019) Social History Tobacco Use Types Packs/Day Years Used Date Never Smoker Smokeless Tobacco: Never Used Alcohol Use Drinks/Week oz/Week Comments Never Alcohol Habits Answer Date Recorded How often do you have a drink containing alcohol? Never 03/27/2019 How many drinks containing alcohol do you have on a typical Not asked day when you are drinking? How often do you have six or more drinks on one occasion? Not asked Sex Assigned at Date Recorded Not on file Job Start Date Occupation Industry Not on file Not on file Not on file Travel History Travel Start Travel End No recent travel history available. documented as of this encounter Last Filed Vital Signs Vital Sign Reading Time Taken Comments Blood Pressure 110/66 03/27/2019 4:04 PM EST Pulse 93 03/27/2019 4:04 PM EST Temperature 36.5 03/27/2019 4:04 PM EST C (97.7 F) Respiratory Rate - - Oxygen Saturation 98% 03/27/2019 4:04 PM EST Inhaled Oxygen Concentration - - Weight 93.9 kg (207 lb) 03/27/2019 4:04 PM EST Height 165.1 cm (5' 5") 03/27/2019 4:04 PM EST Body Mass Index 34.45 03/27/2019 4:04 PM EST documented in this encounter Patient Instructions Patient InstructionsDoManuela amador PA-C - 03/27/2019 4:00 PM ESTOrdered labs -- will do now -- will call with results Keep well hydrated, healthy diet, regular exercise, mediation Gave patient names of therapist in area, call for appointment Choose PCP, make appointment to establish documented in this encounter Progress Notes Manuela Gordon PA-C - 03/27/2019 4:00 PM EST PATIENT: Susanne Irizarry : 2000 DATE OF SERVICE: 03/27/2019 REFERRING PRACTITIONER: Self-Referred PRIMARY CARE PROVIDER: None, [place] CHIEF COMPLAINT: Chief Complaint Patient presents with Anxiety pt states she had a baby 6 months ago and over this time anxiety has gotten worse. also would liekher TSH checked Subjective HISTORY OF PRESENT ILLNESS: Susanne Irizarry is a 19-y.o. female who presents with anxiety Says she had baby 6 months ago, has always had anxiety, has been getting worse since giving 1st baby Diagnosed with anxiety age 10 did not take meds -- says the thought of taking meds made her anxious Denies suicidal thoughts Has not seen therapist in past Has good support system at home, boyfriend, mother Denies fever, chills, nausea, vomiting, diarrhea, chest pains, SOB Sleeping OK Water: good amount daily Coffee: none Soda: none Alcohol: none Exercise: some walking Diet: trying to eat healthy Had gestational DM during -- no insulin or oral meds LMP: 03/10/19, regular, normal -- not Was also diagnosed with hypothyrodism age 14, took meds for 2 months, saw specialist, after 3 month recheck meds were stopped, no meds since Depression Screening Over the last 2 weeks, have you been feeling down, depressed, anxious, or hopeless?: 3 Over the past 2 weeks, have you felt little interest or pleasure in doing things ?: 0 Trouble falling or staying asleep, or sleeping too much?: 0 Feeling tired or having little energy?: 2 Poor appetite or overeating?: 1 (poor) Feeling bad about yourself or that you are a failure or have let yourself or your family down?: 0 Trouble concentrating on things, such as reading the newspaper or watching TV?: 0 Moving or speaking so slowly that other people notice OR being fidgety and restless?: 0 Thoughts that you would be better off or of hurting yourself in some way?: 0 PHQ-9 TOTAL SCORE: 6 How difficult have these problems made it for you to do your work, take care of things at home or get along with people?: Somewhat difficult In the past 2 years, have you felt depressed or sad most days, even if you felt ok?: Yes LUCY-7 Screening Over the last 2 weeks, how often have you felt nervous, anxious or on edge?: 3 Over the last 2 weeks, how often have you not been able to stop or control worrying?: 3 Over the last 2 weeks, how often have you worried too much about different things?: 3 Over the last 2 weeks, how often have you had trouble relaxing?: 1 Over the last 2 weeks, how often have you been so restless you couldn't sit still?: 1 Over the last 2 weeks, how often have you become easily annoyed or irritable: 0 Over the last 2 weeks, how often have you felt afraid as if something awful might happen?: 1 LUCY-7 Total Score: 12 How difficult have these problems made it for you to do your work, take care of things at home, or get along with other people?: Not difficult Past Medical History: Diagnosis Date Anemia Anxiety Hypothyroidism DX'd in high school Thalassemia Past Surgical History: Procedure Laterality Date D C POST DELIVERY 09/22/2018 TONSILLECTOMY Family History Problem Relation Age of Onset Thyroid Mother hyper Psychiatry Mother anxiety Diabetes Father pre-diabetic Asthma Sister No current outpatient medications on file. No current facility-administered medications for this visit. No Known Allergies Social History Socioeconomic History Marital status: Single Spouse name: Not on file Number of children: Not on file Years of education: Not on file Highest education level: Not on file Occupational History Not on file Social Needs Financial resource strain: Not on file Food insecurity Worry: Not on file Inability: Not on file Transportation needs Medical: Not on file Non-medical: Not on file Tobacco Use Smoking status: Never Smoker Smokeless tobacco: Never Used Substance and Sexual Activity Alcohol use: Never Frequency: Never Drug use: Never Sexual activity: Yes Partners: Male control/protection: Condom Lifestyle Physical activity Days per week: Not on file Minutes per session: Not on file Stress: Not on file Relationships Social connections Talks on phone: Not on file Gets together: Not on file Attends anglican service: Not on file Active member of club or organization: Not on file Attends meetings of clubs or organizations: Not on file Relationship status: Not on file Intimate partner violence Fear of current or ex partner: Not on file Emotionally abused: Not on file Physically abused: Not on file Forced sexual activity: Not on file Other Topics Concern Not on file Social History Narrative Not on file REVIEW OF SYSTEMS: Skin: negative skin lesions Eyes: negative visual blurring Ears/Nose/Throat: negative rhinorrhea or sore throat Respiratory: negative cough Cardiovascular: negative chest pain Gastrointestinal: negative abdominal pain, constipation, diarrhea, nausea or vomiting Genitourinary: negative burning on urination, dysuria or vaginal discharge Musculoskeletal: negative arthritis/joint pain Neurologic: negative numbness or tingling of feet or hands Psychiatric: positive anxiety Hematologic/Lymphatic/Immunologic: negative allergies Endocrine: negative diabetes or hot flashes/sweats Objective PHYSICAL EXAMINATION: VITALS: BP 110/66 (BP Location: Right arm, Patient Position: Sitting) | Pulse 93 | Temp 97.7 F (36.5 C) | Ht 5' 5" (1.651 m) | Wt 207 lb (93.9 kg) | SpO2 98% | BMI 34.45 kg/m Body mass index is 34.45 kg/m. General appearance - alert, no distress, cooperative, oriented times 3 Skin - Skin color, texture, turgor normal. No rashes or lesions. Head - Normocephalic. No masses, lesions, tenderness or abnormalities Eyes - conjunctivae/corneas clear. PERRL, EOM's intact. Oropharynx - Lips, mucosa, and tongue normal. Teeth and gums normal. Oropharynx normal. Neck - Neck supple, FROM. No cervical or supraclavicular adenopathy. Thyroid normal, no enlargement Lungs - Good diaphragmatic excursion. Lungs clear. Chest symmetrical. Normal breath sounds. Heart - RRR. No murmurs, clicks or gallops. No peripheral edema. . IMPRESSION: ICD-9-CM ICD-10-CM 1. Anxiety 300.00 F41.9 2. Malaise and fatigue 780.79 R53.81 COMPREHENSIVE METABOLIC PANEL R53.83 CBC WITH DIFFERENTIAL THYROID STIMULATING HORMONE THYROID STIMULATING HORMONE CBC WITH DIFFERENTIAL COMPREHENSIVE METABOLIC PANEL Plan PLAN: Ordered labs -- will do now -- will call with results Keep well hydrated, healthy diet, regular exercise, mediation Gave patient names of therapist in area, call for appointment Choose PCP, make appointment to establish Author: Manuela Gordon PA-C 03/27/2019 16:07 documented in this encounter Plan of Treatment Name Type Priority Associated Diagnoses Date/Time COMPREHENSIVE METABOLIC Lab Routine Malaise and fatigue 03/27/2019 4:31 PM EST PANEL CBC WITH DIFFERENTIAL Lab Routine Malaise and fatigue 03/27/2019 4:31 PM EST THYROID STIMULATING HORMONE Lab Routine Malaise and fatigue 03/27/2019 4: 31 PM EST Name Type Priority Associated Diagnoses Order Schedule COMPREHENSIVE METABOLIC Lab Routine Malaise and fatigue Expected: 2019 PANEL (Approximate), Expires: 03/27/2020 CBC WITH DIFFERENTIAL Lab Routine Malaise and fatigue Expected: 03/27/2019 (Approximate), Expires: 03/27/2020 THYROID STIMULATING HORMONE Lab Routine Malaise and fatigue Expected: 03/27 (Approximate), Expires: 03/27/2020 Health Maintenance Due Date Last Done Comments CHLAMYDIA SCREENING 2000 DTaP/Tdap/Td Vaccines ( - 2009 Tdap) HPV IMMUNIZATION SERIES ( - 2009 Female 2-dose series) HIV SCREENING 2013 INFLUENZA VACCINE (#1) 2018 PAP SMEAR 2019 DEPRESSION SCREENING 03/27/2020 03/27/2019, 03/27/2019 HEPATITIS A IMMUNIZATION Aged Out No longer eligible based SERIES on patient's age to complete this topic MENINGOCOCCAL VACCINE IMM Aged Out No longer eligible based on patient's age to complete this topic PNEUMOCOCCAL 0-64 YRS Aged Out No longer eligible based on patient's age to complete this topic documented as of this encounter Results Not on filedocumented in this encounter Visit Diagnoses Diagnosis Anxiety Anxiety state, unspecified Malaise and fatigue Other malaise and fatigue documented in this encounter
[2019-05-18 06:54] LABS: Hematocrit 33 % (35-47); Hemoglobin 10.4 g/dL (12.0-16.0); Mean Corpuscular HGB Conc 31 g/dL (31-36); Mean Corpuscular Hemoglobin 17 pg (27-31); Mean Corpuscular Volume 54 fL (80-97); Mean Platelet Volume 8.8 fL (7.4-10.4); Platelet Count 326 10^3/uL (150-450); Red Blood Count 6.18 10^6 /uL (3.70-4.87); Red Cell Distribution Width 21 % (10-15); White Blood Count 7.2 10^3/uL (3.5-10.8)
[2019-05-18 07:13] LABS: Albumin 4.1 g/dL (3.2-5.2); Albumin/Globulin Ratio 1.5 (1-3); BUN/Creatinine Ratio 14.1 (8-20); Calcium 9.2 mg/dL (8.6-10.3); EGFR African American 125.7 (>60); EGFR Non-African American 103.9 (>60); Globulin 2.7 g/dL (2-4); Potassium 3.9 mmol/L (3.5-5.0); Total Bilirubin 0.4 mg/dL (0.2-1.0); Total Protein 6.8 g/dL (6.4-8.9)
[2019-05-18 07:22] LABS: ABS Eosinophils 0.1 10^3/ul (0-0.6); ABS Lymphocytes 1.1 10^3/ul (1.0-4.8); ABS Monocytes 0.3 10^3/ul (0-0.8); ABS Neutrophils 5.7 10^3/ul (1.5-7.7); Eosinophil % 1.2 %; Lymphocyte % 14.7 %
--- NOTE | 2019-05-18 07:35 | ED ---
Dizziness - HPI Summary HPI Summary: Pt with a hx of thalassemia presenting to the ED with concern for syncopal episode this morning. She states she had some heartburn yesterday, but no CP or SOB. This resolved following an antacid. Denies cardiac hx. Hx of anemia and states she has a hx of near syncopal episodes (maybe 1 per year) and has never had a need for transfusions. Followed previously by Dr. Del Valle, hematology, but d/t stability of disease, pt was told she did not need to return unless she required surgeries, etc. Patient has not followed up since approx. 7 mos ago. Stable labs. She reports her menses ended yesterday and she always will take iron supplementation during this time only. Denies other medications. Sxs this morning reported as getting up to make her son a bottle and when standing in the kitchen, began to feel as though she would pass out. She had ringing in her ears, slight nausea, slight SOB and darkening visual sensation. She was able to get herself to the ground and continued to feel light headed for a few minutes. This then resolved and she was able to stand up and ambulate. Patient states she had nothing to eat or drink for several hours. She denies any CP at the time. Denies any recent illness, fevers, or other concerns. States at this time she feels normal and back to her baseline. Concerned as she has never had this in the past. Mother at bedside. - History Of Current Complaint Chief Complaint: EDDizziness Stated Complaint: DIZZINESS PER PT MOM Time Seen by Provider: 05/18/19 06:21 Hx Obtained From: Patient Timing: Minutes Severity Initially: Mild Severity Currently: None Character: Lightheaded, Dizzy Aggravating Factor(s): Nothing Alleviating Factor(s): Nothing Associated Signs And Symptoms: Positive: Nausea, Tinnitus, SOB, Visual Changes - Risk Factors Cardiac Risk Factors: Negative CVA Risk Factor: Negative - Allergies/Home Medications Allergies/Adverse Reactions: Allergies Allergy/AdvReac Type Severity Reaction Status Date / Time shellfish derived Allergy Difficulty Verified 05/18/19 04:28 Breathing Home Medications: Home Medications Ferrous Sulfate TAB* 325 mg PO DAILY 10/25/18 [History Confirmed 12/25/18] Ibuprofen TAB* [Motrin TAB* 400 MG] 400 mg PO ONCE 12/25/18 [History Confirmed 12/25/18] PMH/Surg Hx/FS Hx/Imm Hx Previously Healthy: Yes Endocrine/Hematology History: Reports: Hx Diabetes - type 2- dx with , Hx Thyroid Disease - hypothyroid Denies: Hx Anticoagulant Therapy Cardiovascular History: Denies: Hx Congestive Heart Failure, Hx Deep Vein Thrombosis, Hx Hypertension , Hx Myocardial Infarction, Hx Pacemaker/ICD Respiratory History: Denies: Hx Asthma, Hx Chronic Obstructive Pulmonary Disease (COPD), Hx Lung Cancer, Hx Pneumonia, Hx Pulmonary Embolism GI History: Denies: Hx Gall Bladder Disease, Hx Gastrointestinal Bleed, Hx Ulcer, Hx Urosepsis History: Denies: Hx Dialysis, Hx Kidney Stones, Hx Renal Disease Sensory History: Reports: Hx Contacts or Glasses Denies: Hx Hearing Aid Opthamlomology History: Reports: Hx Contacts or Glasses Neurological History: Reports: Other Neuro Impairments/Disorders - PAIN CLINIC PT. Denies: Hx Dementia, Hx Migraine, Hx Seizures, Hx Transient Ischemic Attacks (TIA) Psychiatric History: Reports: Hx Anxiety - panic disorder Denies: Hx Depression, Hx Schizophrenia, Hx Bipolar Disorder - Cancer History Cancer Type, Location and Year: denies - Surgical History Surgery Procedure, Year, and Place: Tonsillectomy, [facility] Hx Anesthesia Reactions: Yes - Panic attacks - Immunization History Date of Influenza Vaccine: 03/2018 Hx Pertussis Vaccination: No Immunizations Up to Date: Yes Infectious Disease History: No Infectious Disease History: Denies: Hx Clostridium Difficile, Hx Hepatitis, Hx Human Immunodeficiency Virus (HIV), Hx of Known/Suspected MRSA, Hx Shingles, Hx Tuberculosis, Hx Known/ Suspected VRE, Hx Known/Suspected VRSA, History Other Infectious Disease, Traveled Outside the [place] in Last 30 Days - Family History Known Family History: Positive: Diabetes, Other - irritable bowel (mother), gastroschisis (sister) Negative: Cardiac Disease, Hypertension, Blood Disorder - Social History Occupation: Employed Full-time Lives: With Family Alcohol Use: None Hx Substance Use: No Substance Use Type: Reports: None Smoking Status (MU): Never Smoked Tobacco Review of Systems Negative: Fever, Chills, Fatigue, Skin Diaphoresis Negative: Dental Pain, Ear Ache, Nasal Discharge Negative: Palpitations, Chest Pain Negative: Shortness Of Breath, Cough Positive: Nausea Genitourinary: Negative Positive: no symptoms reported, see HPI Positive: Weakness. Negative: Headache, Paresthesia, Numbness, Syncope, Slurred Speech Psychological: Normal All Other Systems Reviewed And Are Negative: Yes Physical Exam Triage Information Reviewed: Yes Vital Signs On Initial Exam: Initial Vitals Temp Pulse Resp BP Pulse Ox 98.0 F 96 18 110/80 98 05/18/19 04:30 05/18/19 04:30 05/18/19 04:30 05/18/19 04:30 05/18/19 04:30 Vital Signs Reviewed: Yes Appearance: Positive: Well-Appearing, Well-Nourished Skin: Positive: Warm, Skin Color Reflects Adequate Perfusion Head/Face: Positive: Normal Head/Face Inspection Eyes: Positive: EOMI, MARSHA Neck: Positive: Supple, No Lymphadenopathy Respiratory/Lung Sounds: Positive: Clear to Auscultation, Breath Sounds Present Cardiovascular: Positive: RRR, Pulses are Symmetrical in both Upper and Lower Extremities Musculoskeletal: Positive: Normal, Strength/ROM Intact Neurological: Positive: Sensory/Motor Intact, Alert, Oriented to Person Place, Time, CN Intact II-III, Normal Gait, Facial Symmetry, Speech Normal. Negative: Slurred Speech Psychiatric: Positive: Normal, Affect/Mood Appropriate AVPU Assessment: Alert Procedures - Sedation Patient Received Moderate/Deep Sedation with Procedure: No Diagnostics - Vital Signs Vital Signs Temp Pulse Resp BP Pulse Ox 05/18/19 06:30 73 106/64 100 05/18/19 06:01 69 100 05/18/19 05:59 75 114/72 100 05/18/19 05:30 76 100/66 99 05/18/19 05:29 73 99 05/18/19 04:30 98.0 F 96 18 110/80 98 - Laboratory Lab Results: Lab Results 05/18/19 05/18/19 Range/Units 06:45 06:45 WBC 7.2 (3.5-10.8) 10^3/uL RBC 6.18 H (3.70-4.87) 10^6 /uL Hgb 10.4 L (12.0-16.0) g/dL Hct 33 L (35-47) % MCV 54 L (80-97) fL MCH 17 L (27-31) pg MCHC 31 (31-36) g/dL RDW 21 H (10-15) % Plt Count 326 (150-450) 10^3/uL MPV 8.8 (7.4-10.4) fL Neut % (Auto) 79.7 % Lymph % (Auto) 14.7 % Lucas % (Auto) 4.0 % Eos % (Auto) 1.2 % Baso % (Auto) 0.4 % Absolute Neuts (auto) 5.7 (1.5-7.7) 10^3/ul Absolute Lymphs (auto) 1.1 (1.0-4.8) 10^3/ul Absolute Monos (auto) 0.3 (0-0.8) 10^3/ul Absolute Eos (auto) 0.1 (0-0.6) 10^3/ul Absolute Basos (auto) 0.0 (0-0.2) 10^3/ul Absolute Nucleated RBC 0.0 10^3/ul Nucleated RBC % 0.0 Sodium 138 (135-145) mmol/L Potassium 3.9 (3.5-5.0) mmol/L Chloride 106 (101-111) mmol/L Carbon Dioxide 25 (22-32) mmol/L Anion Gap 7 (2-11) mmol/L BUN 10 (6-24) mg/dL Creatinine 0.71 (0.51-0.95) mg/dL Est GFR ( Amer) 125.7 (>60) Est GFR (Non-Af Amer) 103.9 (>60) BUN/Creatinine Ratio 14.1 (8-20) Glucose 98 (70-100) mg/dL Calcium 9.2 (8.6-10.3) mg/dL Total Bilirubin 0.40 (0.2-1.0) mg/dL AST 13 (13-39) U/L ALT 9 (7-52) U/L Alkaline Phosphatase 48 (34-104) U/L Total Protein 6.8 (6.4-8.9) g/dL Albumin 4.1 (3.2-5.2) g/dL Globulin 2.7 (2-4) g/dL Albumin/Globulin Ratio 1.5 (1-3) Result Diagrams: 05/18/19 06:45 05/18/19 06:45 Lab Statement: Any lab studies that have been ordered have been reviewed, and results considered in the medical decision making process. - EKG EKG Cardiac Rate: NL EKG Rhythm: Sinus Rhythm ST Segment: Normal Ectopy: None Dizzy Course/Dx - Course Course Of Treatment: On physical exam, patient appears well. Afebrile, VS stable. Patient denies any symptoms. Ambulating well. A & O x 3. EKG shows NSR. No neuro deficits on exam. Labs show elevated RBC consistent with previous labs with no other abnormalities. Discussed with patient this likely was a near syncopal episode secondary to a vasovagal reaction. Patient ambulating and drinking well upon discharge. Continues to be asymptomatic. - Diagnoses Differential Diagnosis/HQI/PQRI: Anxiety, Benign Paroxysmal Positional Vertigo, Hyperventilation, Hypovolemia, Metabolic Abnormality, Vasovagal Reaction Provider Diagnoses: Near syncope Discharge ED - Sign-Out/Discharge Documenting (check all that apply): Patient Departure - Discharge Plan Condition: Stable Disposition: HOME Patient Education Materials: Syncope (ED) Referrals: No Primary Care Phys,NOPCP [Primary Care Provider] - Additional Instructions: You likely had a vasovagal episode. Vasovagal syncope occurs when you faint or come close to fainting because your body overreacts to certain triggers, such as the sight of blood or extreme emotional distress and it can also occur spontaneously and for no diagnostic reason. Sometimes due to dehydration or not having enough glucose in your system. The vasovagal syncope trigger causes your heart rate and blood pressure to drop suddenly. That leads to reduced blood flow to your brain, causing you to briefly lose consciousness or come near close to it. Vasovagal syncope/near syncope is usually harmless and requires no treatment. But it's possible you may injure yourself during a vasovagal syncope episode. Symptoms: Before you faint due to vasovagal syncope, you may experience some of the following: Pale skin Lightheadedness Tunnel vision your field of vision narrows so that you see only what's in front of you Nausea tingling in the extremities heart racing Feeling warm A cold, clammy sweat Yawning Blurred vision - Billing Disposition and Condition Condition: STABLE Disposition: Home
[2019-05-18 07:48] VITALS: BP 113/64
== END 2019-05-18 07:47 | disposition home or self-care (01) ==
LOC: ED 04:21
DX: R55 Syncope and collapse (principal); R11.0 Nausea; E03.9 Hypothyroidism, unspecified; Z86.32 Personal history of gestational diabetes; F41.9 Anxiety disorder, unspecified
CPT/HCPCS: 36415; 80053; 85025; 93005; 99282

== ENCOUNTER 2024-04-22 20:28 | Observation (INO) ==
[2024-04-22 21:15] LABS: Activated Partial Thrombo Time 33.5 seconds (26.0-38.0); INR 1.13 (0.85-1.14)
[2024-04-22 21:29] LABS: High Sens Troponin Baseline < 3 pg/mL (<15)
[2024-04-22 21:40] LABS: ABS Basophils 0.1 10^3/uL (0.0-0.1); ABS Eosinophils 0.3 10^3/uL (0.0-0.5); ABS Lymphocytes 2.4 10^3/uL (1.0-4.8); ABS Monocytes 0.8 10^3/uL (0.0-0.9); ABS Neutrophils 8.1 10^3/uL (1.5-7.6); Eosinophil % 2.3 %; Hematocrit 35.2 % (35-45); Hemoglobin 10.8 g/dL (11.5-14.3); Lymphocyte % 20.7 %; Mean Corpuscular Hemoglobin 17.3 pg (27-33); Mean Corpuscular Hgb Conc 30.7 g/dL (31-36); Mean Corpuscular Volume 56.3 fL (80-97); Mean Platelet Volume 8.9 fL (7.5-11.2); Platelet Count 368 10^3/uL (150-450); Red Blood Count 6.25 10^6/uL (3.63-4.92); Red Cell Distribution Width 18.8 % (12-17); White Blood Count 11.7 10^3/uL (3.8-11.8)
[2024-04-22 21:57] LABS: ALT 15 U/L (7-52); Albumin 4.2 g/dL (3.5-5.7); Albumin/Globulin Ratio 1.4 (1-3); Alkaline Phosphatase 53 U/L (35-149); Anion Gap 6 mmol/L (2-16); Blood Urea Nitrogen 15 mg/dL (6-24); CO2 Carbon Dioxide 29 mmol/L (22-32); Calcium 9.3 mg/dL (8.6-10.3); Chloride 103 mmol/L (101-111); Cholesterol 129 mg/dL; Creatinine, Serum 0.83 mg/dL (0.51-0.95); Globulin 2.9 g/dL (2-4); Glucose 96 mg/dL (70-100); HDL Cholesterol 49.6 mg/dL; LDL Cholesterol 66 mg/dL; Sodium 138 mmol/L (135-145); Total Bilirubin 0.3 mg/dL (0.2-1.0); Total Protein 7.1 g/dL (6.4-8.9); Triglycerides 67 mg/dL; eGFR CKD-EPI 99.6 (>60)
[2024-04-22 22:43] LABS: High Sensitivity Troponin 1 Hr < 3 pg/mL (<15)
[2024-04-22 22:49] LABS: Urine Appearance Clear; Urine Bilirubin Negative (Negative); Urine Blood Negative (Negative); Urine Color Light-Yellow; Urine Glucose Negative (Negative); Urine Ketones Negative (Negative); Urine Nitrite Negative (Negative); Urine Protein Negative (Negative); Urine Specific Gravity 1.018 (1.002-1.030); Urine Urobilinogen Negative (Negative)
[2024-04-22 23:16] LABS: AST Redraw 13 U/L (13-39); Direct Bilirubin 0.1 mg/dL (0.03-0.18); Potassium Redraw 3.9 mmol/L (3.5-5.0)
[2024-04-22 23:30] LABS: Urine Bacteria Absent /HPF (Absent); Urine Red Blood Cell Trace(0-2/hpf) /HPF (0-Trace); Urine Squamous Epithelial Cell Present /HPF (Absent); Urine White Blood Cell Trace(0-5/hpf) /HPF (0-Trace)
[2024-04-22] MEDS: Iodixanol 320 (CONTRAST) 100 ML SDV IV ONE (23:37)
[2024-04-23 00:21] LABS: % Iron Saturation 5 % (15-55); .Transferrin 266 mg/dL (203-362); C Reactive Protein 9.14 mg/L (<8.01); Iron < 20 ug/dL (50-212); Magnesium 1.8 mg/dL (1.9-2.7); Total Iron Binding Capacity 372 mcg/dL (250-450); Unsaturated Iron Binding 352 ug/dL
[2024-04-23 00:36] LABS: TSH Ultra Thyroid Stim Horm 6.32 mcIU/mL (0.34-5.60)
[2024-04-23 00:47] LABS: Folate 14.13 ng/mL (5.90-24.80)
[2024-04-23 00:48] LABS: Vitamin B12 331 pg/mL (180-914)
[2024-04-23 00:50] LABS: Erythrocyte Sed Rate 5 mm/Hr (0-19)
[2024-04-23] MEDS: Magnesium Sulfate 2 gm BAG 2 GM/50 ML BAG IVPB ONE (01:03)
[2024-04-23] MEDS: Potassium Chlor 10 meq TAB PO ONE (02:50)
[2024-04-23] MEDS: Ferric Gluconate IV 250 MG in NS 0.9% 250 ml 200 ML IVPB SCH (02:50)
[2024-04-23 05:56] LABS: ABS Basophils 0.1 10^3/uL (0.0-0.1); ABS Eosinophils 0.2 10^3/uL (0.0-0.5); ABS Lymphocytes 2.1 10^3/uL (1.0-4.8); ABS Monocytes 0.6 10^3/uL (0.0-0.9); ABS Neutrophils 6.5 10^3/uL (1.5-7.6); Eosinophil % 1.8 %; Hematocrit 31.4 % (35-45); Hemoglobin 9.9 g/dL (11.5-14.3); Lymphocyte % 22.6 %; Mean Corpuscular Hemoglobin 17.6 pg (27-33); Mean Corpuscular Hgb Conc 31.6 g/dL (31-36); Mean Corpuscular Volume 55.8 fL (80-97); Mean Platelet Volume 8.5 fL (7.5-11.2); Platelet Count 299 10^3/uL (150-450); Red Blood Count 5.62 10^6/uL (3.63-4.92); Red Cell Distribution Width 18.4 % (12-17); White Blood Count 9.4 10^3/uL (3.8-11.8)
[2024-04-23 06:03] LABS: Calcium 8.3 mg/dL (8.6-10.3); Creatinine, Serum 0.67 mg/dL (0.51-0.95); Magnesium 2.2 mg/dL (1.9-2.7); Potassium 4.2 mmol/L (3.5-5.0); eGFR CKD-EPI 123.5 (>60)
[2024-04-23] MEDS: Multivitamins/Minerals TAB PO SCH (08:21)
[2024-04-23] MEDS: Riboflavin (B2) 100 mg TAB(NF) PO SCH (08:21)
[2024-04-23 09:37] VITALS: BP 120/74
[2024-04-29 11:46] LABS: Pyridoxal 5-Phosphate (PLP), P 5 mcg/L (5-50)
== END 2024-04-23 11:50 | disposition home or self-care (01) ==
LOC: EDHOLD 20:28 → ED 20:28 → SUATTDRO 23:19 → MED 04-23 01:35
PROVIDERS: ADMIT Hospitalist; ATTEND Internal Medicine